=== PATIENT | female | born 1980 | race African-American/Black ===

== ENCOUNTER 2023-03-28 21:29 | Emergency (ER) | payer MEDICAID, SELFPAY ==
--- NOTE | ~2023-03-28 | XR_ITS ---
EXAMINATION: XR KNEE, RIGHT CLINICAL INFORMATION: Pain for 5 days. [place] pop COMPARISON: None available. TECHNIQUE: Two views of the right knee. FINDINGS: No displaced fracture. No dislocation. Small marginal bone spurs of the Pellet the patellofemoral joint. Small globular amorphous calcification anterior to the knee joint. Fullness in the suprapatellar area of possible joint effusion. XR/XR knee RT 2V IMPRESSION: 1. No acute osseous abnormality. 2. Possible joint effusion. 3. Mild degenerative change of the patellofemoral joint.
[2023-03-28 21:41] VITALS: BP 131/84; BP 138/90; PULSE 70; PULSE 97; RESP 16; TEMP 36.4; O2SAT 97; O2SAT 99; BMI 39.1
--- NOTE | 2023-03-28 22:31 | ED.EXTPRO ---
HPI - Extremity Problem General Chief complaint: Extremity Problem Stated complaint: knee pain and swelling, per ems Time Seen by Provider: 03/28/23 22:16 Source: patient Mode of arrival: wheelchair Limitations: no limitations History of Present Illness HPI Narrative: Patient comes emergency room complaining of right-sided knee pain. Patient states that approximately 5 days ago, patient got of her couch and heard a pop in her right knee. Patient states that as she continued to walk, the popping continued. Patient applied ice, took ibuprofen. Initially she started improving but for the last 2 days, patient states that her knee is much more swollen, unable to bend the knee due to the swelling/pressure and pain. Patient denies erythema or significant warmth on the knee. Patient denies any recent injury. Patient states that couple of years ago, patient fell down the stairs and injured her right knee. Patient did not require any treatment for it. Related Data Allergies Allergy/AdvReac Type Severity Reaction Status Date / Time acetaminophen [From TYLENOL] Allergy Intermediate GUMS TINGLE Unverified 05/27/20 19:25 Review of Systems Review of Systems: Constitutional : No Weight loss, No Fever, No Chills, No Night Sweats, No Fatigue, No Malaise ENT/Mouth : No Hearing loss, No Ear Pain, No Nasal Congestion, No Sinus Pain, No Hoarseness, No sore throat, No Rhinorrhea, No Swallowing Difficulty Eyes: No Eye Pain, No Swelling, No Redness, No Foreign Body, No Discharge, No Vision Changes Cardiovascular : No Chest Pain, No SOB, No Dyspnea on Exertion, No Orthopnea, No Edema, No Palpitations Respiratory : No Cough, No Sputum, No Wheezing, No Smoke Exposure, No Dyspnea Gastrointestinal : No Nausea, No Vomiting, No Diarrhea, No Constipation, No abdominal Pain, No Hematochezia, No Melena Genitourinary : no irregular bleeding, No Dysuria, No Urinary Frequency, No Hematuria, No Urinary Incontinence, No Urgency, No Flank Pain, No Urinary Flow Changes, No Hesitancy Musculoskeletal : Dying of right knee pain and swelling and popping noises, No Myalgias, No Joint Swelling Skin : No Skin Lesions, No rash Neuro : No Weakness, No Numbness, No Paresthesias, No Loss of Consciousness, No Dizziness, No Headache Psych : No Anxiety/Panic, No Depression, No SI/HI/AH/VH, No Social Issues, Heme/Lymph: No Bruising, No Bleeding,No Lymphadenopathy Endocrine : No Polyuria, No Polydipsia, No Temperature Intolerance [facility] Social History Social History Advance Directives: No Advance Directives Information Provided: Yes Physical Exam Vital Signs: Vital Signs: Last Vital Signs Temp 97.6 F 03/28/23 21:41 Pulse 70 03/28/23 21:41 Resp 16 03/28/23 21:41 BP 131/84 03/28/23 21:41 Pulse Ox 97 03/28/23 21:41 O2 Del Method Room Air 03/28/23 21:41 BMI result Body Mass Index 39.1 Const: Other: Appearance: Alert. Oriented X3. No acute distress. Eyes: Pupils equal, round and reactive to light. ENT: Pharynx normal. Neck: Normal inspection. Neck supple. No lymph nodes noted. No crepitus CVS: Normal heart rate and rhythm. Pulses normal. Normal S1 and S2 Respiratory: No respiratory distress. Breath sounds normal. No Wheezing. No rales Abdomen: Soft and nontender. No rigidity. No distention. Skin: Skin warm and dry. Normal skin color. Normal skin turgor. Extremities: No lower extremity edema. No Lacerations. No Rash it when he looks mildly swollen, no erythema, no ecchymosis, no obvious effusion. Patient unable to flex the knee and put her foot flat on the bed, patient has a positive test for Carl's on the right knee. Neuro: Oriented X 3. No motor deficit. No sensory deficit. Moving all extremities. No slurred speech. CN 2 through 12 grossly intact Psych: calm, cooperative, normal affect Medical Decision Making Medical Decision Making MDM Narrative: -I discussed the physical exam with the patient, patient likely have a medial or lateral meniscus injury -patient was provided a knee brace, crutches, instructed to follow-up with orthopedics -patient given 1 IM dose of ketorolac -my interpretation of x-rays of the knee: Normal alignment Differential Diagnosis Differential Diagnoses: The differential diagnosis associated with the presentation includes (Meniscal injury, ligament injury, patellar fracture, subluxation/dislocation) Discharge Plan Discharge Clinical Impression: Injury of meniscus of right knee Patient Disposition: Home, Self-Care Instructions: Knee Pain (ED) Additional Instructions: Please follow-up with your primary care physician tomorrow. If you have any worsening or new symptoms, please return to the emergency room or call 911 Referrals: Alirio Mckeon PA-C [Physician [employer]] - 2 days
[2023-03-28] MEDS: Ketorolac Tromethamine 60 MG/2 ML VIAL IM (22:48)
--- NOTE | 2023-03-28 22:54 | PC.NURSE ---
knee immobilizer applied to right knee, crutches and training provided, medicated per NOV for 8/10 right knee pain.
== END 2023-03-28 22:56 | disposition home or self-care (01) ==
PROVIDERS: Emergency Provider Emergency Medicine
DX: S83.8X1A Sprain of other specified parts of right knee, initial encounter (principal); W10.8XXA Fall (on) (from) other stairs and steps, initial encounter; Y93.9 Activity, unspecified; Y92.9 Unspecified place or not applicable; Y99.9 Unspecified external cause status
CPT/HCPCS: 73560; 96372; 99283; 99284; J1885

== ENCOUNTER → 2024-03-11 11:28 | Outpatient (BNV) | payer MEDICAID, SELFPAY | PROVIDERS: Visit Provider Internal Medicine | DX: R94.31 Abnormal electrocardiogram [ECG] [EKG] (principal) | CPT/HCPCS: 93010 ==

== ENCOUNTER 2024-03-11 11:29 | Emergency (ER) | payer MEDICAID, SELFPAY ==
--- NOTE | 2024-03-11 | ECG_ITS ---
Test Reason : irreg heartbeat Blood Pressure : / mmHG Vent. Rate : 074 BPM Atrial Rate : 074 BPM P-R Int : 170 ms QRS Dur : 100 ms QT Int : 380 ms P-R-T Axes : 063 -55 048 degrees QTc Int : 421 ms Normal sinus rhythm Left anterior fascicular block Abnormal ECG When compared with ECG of 02-AUG-2018 14:31, No significant change was found Referred By: Generic ED Physician Electronically Signed By:ROSEMARIE CASTELLON
--- NOTE | ~2024-03-11 | XR_ITS ---
EXAMINATION: XR SOFT TISSUE NECK CLINICAL INDICATION: Swelling COMPARISON: None available. TECHNIQUE: 2 views of the soft tissue neck were obtained. FINDINGS: Prevertebral soft tissues are normal. The epiglottis and aryepiglottic folds appear normal. There is no distention of the hypopharynx. No radiopaque foreign body seen. There does appear to be soft tissue prominence however in the expected region of the submandibular glands. This can be best evaluated with contrast-enhanced CT or ultrasound. XR/XR soft tissue neck IMPRESSION: Query prominent submandibular swelling. The prevertebral soft tissues however and epiglottis appear normal.
[2024-03-11 11:38] VITALS: BP 151/71; PULSE 74; RESP 19; TEMP 36.4; O2SAT 99; BMI 39.9
--- NOTE | 2024-03-11 11:38 | ED_ITS ---
HPI - General Adult General Chief complaint: General Medical Stated complaint: Irregular heart beat/Neck issues? Time Seen by Provider: 03/11/24 13:18 Related Data Allergies Allergy/AdvReac Type Severity Reaction Status Date / Time No Known Allergies Allergy Verified 03/11/24 11:45 [facility] Social History Social History Smoked in Last 30 Days: No Use of substances other than those prescribed or required for medical reasons: No Advance Directives: No Advance Directives Information Provided: Yes Do you have a plan to hurt others: No Plan Physical Exam ED Vital Signs: BMI result Body Mass Index 39.9 Course Course Course Narrative: This is a rapid medical exam performed by Ricci Montesinos NP: Additional HPI, ROS, PE not included below will be deferred to primary provider. Patient is a 43-year-old female presenting to the ED with complaint of left sided neck swelling for 2 months, reports family hx of thyroid CA. Noticed increased swelling after returning from [place] after February. Also reports hair loss to back of head, anxiety, palpitations/chest tightness. No current PCP. Plan: EKG, labs Medical Decision Making Lab Data 03/11/24 11:53 03/11/24 11:53 Labs: Lab Results 03/11/24 Range/Units 11:53 WBC 9.9 (4.8-10.8) X10*3/uL RBC 5.35 (4.20-5.50) X10*6/uL Hgb 14.6 (12.0-16.0) g/dl Hct 43.5 (37.0-47.0) % MCV 81.3 (80.0-98.0) fL MCH 27.3 (27.0-33.0) pg MCHC 33.6 (31.0-35.0) g/dl RDW 13.1 (11.0-16.0) % Plt Count 243 (160-400) X10*3/uL MPV 8.8 L (9.4-12.3) fL Immature Gran % (Auto) 0.3 (0.0-0.4) % Neut % (Auto) 48.9 (45-73) % Lymph % (Auto) 44.2 H (20-40) % [place] % (Auto) 5.7 (2-11) % Eos % (Auto) 0.6 (0-4) % Baso % (Auto) 0.3 (0-2) % Lymph # (Auto) 4.4 (1.2-4.9) X10*3/uL [place] # (Auto) 0.6 (0.1-1.2) X10*3/uL Eos # (Auto) 0.1 (0.0-0.4) X10*3/uL Baso # (Auto) 0.0 (0.0-0.2) X10*3/uL Abs Immat Gran (auto) 0.03 (0.00-0.03) X10*3/uL Absolute Neuts (auto) 4.9 (2.0-8.3) x10*3/uL Absolute Nucleated RBC 0.000 (0.0-0.012) X10*3/uL Nucleated RBC % (auto) 0.0 (0.0-0.2) /100WBC PT 10.7 L (11.1-13.3) SEC INR 0.9 (0.9-1.1) Sodium 139 (135-145) mmol/L Potassium 4.0 (3.3-5.1) mmol/L Chloride 105 (96-108) mmol/L Carbon Dioxide 28 (22-29) mmol/L Anion Gap 10 L (12-20) BUN 6 L (9-16) mg/dL Creatinine 0.81 (0.5-1.4) mg/dL Estim Creat Clear Calc 112.1 Estimated GFR > 60 Random Glucose 103 (60-115) mg/dL Calcium 9.5 (8.4-10.2) mg/dL Magnesium 2.1 (1.6-2.6) mg/dL Total Bilirubin 1.1 H (0.0-1.0) mg/dL AST 75 H (5-31) U/L ALT 86 H (0-31) U/L Alkaline Phosphatase 50 (39-117) U/L Troponin I High Sens < 2.7 (<3.5-17.0) ng/L Total Protein 7.3 (6.5-8.0) g/dL Albumin 4.5 (3.5-5.0) g/dL TSH 1.57 (0.32-4.0) uIU/mL Beta HCG, Quant < 2 mIU/mL Discharge Plan Discharge Clinical Impression: Chest pain Patient Disposition: Home, Self-Care Instructions: Noncardiac Chest Pain (ED) Additional Instructions: You were seen and evaluated in the emergency room. Your vital signs were normal and he did not have fever. ? Your blood work was reassuring. Your x-ray of the neck was normal. Please follow-up with your primary care doctor in the next 5-7 days. Please return to the emergency room if you develop any worsening symptoms including, but not limited to fever, chest pain or difficulty breathing. ? Interventions: ED Discharge Assessment Last Done: 03/11/24 15:56 Discharge Date/Time: 03/11/24 15:57 Print Language: Israeli
[2024-03-11 11:59] LABS: MANUAL DIFF FLAG NO
[2024-03-11 12:00] LABS: Basophils Percent Auto 0.3 % (0-2); Eosinophils Absolute Auto 0.1 X10*3/uL (0.0-0.4); Eosinophils Percent Auto 0.6 % (0-4); Hematocrit 43.5 % (37.0-47.0); Hemoglobin 14.6 g/dl (12.0-16.0); Imm Gran Abs Auto 0.03 X10*3/uL (0.00-0.03); Imm Gran Pct Auto 0.3 % (0.0-0.4); Lymphocytes Absolute Auto 4.4 X10*3/uL (1.2-4.9); Lymphocytes Percent Auto 44.2 % (20-40); Mean Corpuscular HGB Conc 33.6 g/dl (31.0-35.0); Mean Corpuscular Hemoglobin 27.3 pg (27.0-33.0); Mean Corpuscular Volume 81.3 fL (80.0-98.0); Mean Platelet Volume 8.8 fL (9.4-12.3); Monocytes Absolute Auto 0.6 X10*3/uL (0.1-1.2); Monocytes Percent Auto 5.7 % (2-11); Neutrophils Absolute Auto 4.9 x10*3/uL (2.0-8.3); Neutrophils Percent Auto 48.9 % (45-73); Platelet Count 243 X10*3/uL (160-400); Red Blood Count 5.35 X10*6/uL (4.20-5.50); Red Cell Distribution Width 13.1 % (11.0-16.0); White Blood Count 9.9 X10*3/uL (4.8-10.8)
[2024-03-11 12:08] LABS: INTERNATIONAL NORM RATIO 0.9 (0.9-1.1); Prothrombin Time 10.7 SEC (11.1-13.3)
[2024-03-11 12:24] LABS: Alanine Aminotransferase 86 U/L (0-31); Albumin Level 4.5 g/dL (3.5-5.0); Alkaline Phosphatase 50 U/L (39-117); Anion Gap 10 (12-20); Aspartate Amino Transferase 75 U/L (5-31); Bilirubin Total 1.1 mg/dL (0.0-1.0); Blood Urea Nitrogen 6 mg/dL (9-16); Calcium 9.5 mg/dL (8.4-10.2); Carbon Dioxide 28 mmol/L (22-29); Chloride 105 mmol/L (96-108); Creatinine Clr Calc Pharmacy 112.1; Estimated Glomerular Filt Rate > 60; Glucose Random 103 mg/dL (60-115); Magnesium 2.1 mg/dL (1.6-2.6); Sodium 139 mmol/L (135-145); Total Protein 7.3 g/dL (6.5-8.0)
[2024-03-11 12:39] LABS: TSH reflex Free T4 1.57 uIU/mL (0.32-4.0)
[2024-03-11 12:48] LABS: HCG Quantitative < 2 mIU/mL; Troponin-I High Sensitivity < 2.7 ng/L (<3.5-17.0)
--- NOTE | 2024-03-11 13:21 | ED.GENADULT ---
HPI - General Adult General Chief complaint: General Medical Stated complaint: Irregular heart beat/Neck issues? Time Seen by Provider: 03/11/24 13:18 Source: patient Mode of arrival: ambulatory Limitations: no limitations History of Present Illness HPI narrative: This is a 43-year-old woman with a past medical history of anxiety/depression who presents for evaluation. The patient states that the family members having noticed some increased swelling underneath her chin. She reports that she initially thought that this was secondary to weight gain, but states that she is fairly active. She states that she at times notices the swelling though at other times does not notice it, but states that family members were concerned due to having previously had family members with thyroid cancer. She states that everyone has different perspectives . She states she has noticed some hair loss when showering. She states feeling tired, but states she is very busy with her young children and states her child has autism. She states she was very worried about her family members concerns last night and states she did not sleep well. She states she was up until 4-5am this morning. She states she had chest tightness last night and states she had to step outside for a short walk, which she states helped. She states no exertional chest pain or dyspnea. She states no back pain or abdominal pain. She states no nausea or vomiting. She states no sore throat, cough, congestion, fevers or chills. She states no abdominal pain. She states no urinary symptoms or changes to bowel habits. Related Data Allergies Allergy/AdvReac Type Severity Reaction Status Date / Time No Known Allergies Allergy Verified 03/11/24 11:45 Review of Systems Review of Systems: ROS as per HPI [facility] Social History Social History Smoked in Last 30 Days: No Use of substances other than those prescribed or required for medical reasons: No Advance Directives: No Advance Directives Information Provided: Yes Do you have a plan to hurt others: No Plan Physical Exam ED Vital Signs: Vital Signs - 24 hr 03/11/24 11:38 03/11/24 13:39 03/11/24 14:20 Temperature 97.5 F 97.7 F 98 F Pulse Rate 74 72 62 Respiratory Rate 19 13 16 Blood Pressure 151/71 H 132/94 H 128/62 Pulse Oximetry 99 100 100 Oxygen Delivery Method Room Air Room Air Room Air BMI result Body Mass Index 39.9 Gen: NAD, AOx3 HEENT: NCAT, EOMI, normal conjunctiva, uvula midline without edema, no posterior oropharynx erythema or exudates, no sublingual edema Neck: supple, no anterior neck edema or overlying skin changes, no appreciable thyromegaly CV: RRR Pulm: CTAB, no increased work of breathing GI: Soft, NTND, no rebound, guarding or rigidity MSK: No midline vertebral tenderness to palpation, full range of motion with neck flexion/extension lateral 45 degree rotation Neuro: Grossly non focal Medical Decision Making Medical Decision Making [facility] Narrative: Differential diagnosis includes, but is not limited to anxiety, acute coronary syndrome, electrolyte abnormality, hypothyroidism. Patient is afebrile and hemodynamically stable on room air. Exam is benign and reassuring. I reviewed and interpreted labs, which are noncontributory. I reviewed and interpreted EKG, which is unremarkable for any acute findings. Reviewed RME. X-ray of the neck is unremarkable for any acute findings. On re-examination, patient is well-appearing and in no acute distress. Patient is tolerating po intake. There is no indication for further emergent evaluation in this otherwise well-appearing patient as above. ?Patient is provided written and verbal instructions, educational materials, recommendations for outpatient follow-up, strict return precautions and teach back is performed. ?Patient states understanding and agreement with plan of care. ?Patient is discharged home in stable and improved condition. Admission/Observation Consideration of admission/observation: Escalation of care including admission/observation considered Lab Data [facility] Lab Attestation statement: I reviewed the patient's lab results. 03/11/24 11:53 03/11/24 11:53 Labs: Lab Results 03/11/24 Range/Units 11:53 WBC 9.9 (4.8-10.8) X10*3/uL RBC 5.35 (4.20-5.50) X10*6/uL Hgb 14.6 (12.0-16.0) g/dl Hct 43.5 (37.0-47.0) % MCV 81.3 (80.0-98.0) fL MCH 27.3 (27.0-33.0) pg MCHC 33.6 (31.0-35.0) g/dl RDW 13.1 (11.0-16.0) % Plt Count 243 (160-400) X10*3/uL MPV 8.8 L (9.4-12.3) fL Immature Gran % (Auto) 0.3 (0.0-0.4) % Neut % (Auto) 48.9 (45-73) % Lymph % (Auto) 44.2 H (20-40) % [place] % (Auto) 5.7 (2-11) % Eos % (Auto) 0.6 (0-4) % Baso % (Auto) 0.3 (0-2) % Lymph # (Auto) 4.4 (1.2-4.9) X10*3/uL [place] # (Auto) 0.6 (0.1-1.2) X10*3/uL Eos # (Auto) 0.1 (0.0-0.4) X10*3/uL Baso # (Auto) 0.0 (0.0-0.2) X10*3/uL Abs Immat Gran (auto) 0.03 (0.00-0.03) X10*3/uL Absolute Neuts (auto) 4.9 (2.0-8.3) x10*3/uL Absolute Nucleated RBC 0.000 (0.0-0.012) X10*3/uL Nucleated RBC % (auto) 0.0 (0.0-0.2) /100WBC PT 10.7 L (11.1-13.3) SEC INR 0.9 (0.9-1.1) Sodium 139 (135-145) mmol/L Potassium 4.0 (3.3-5.1) mmol/L Chloride 105 (96-108) mmol/L Carbon Dioxide 28 (22-29) mmol/L Anion Gap 10 L (12-20) BUN 6 L (9-16) mg/dL Creatinine 0.81 (0.5-1.4) mg/dL Estim Creat Clear Calc 112.1 Estimated GFR > 60 Random Glucose 103 (60-115) mg/dL Calcium 9.5 (8.4-10.2) mg/dL Magnesium 2.1 (1.6-2.6) mg/dL Total Bilirubin 1.1 H (0.0-1.0) mg/dL AST 75 H (5-31) U/L ALT 86 H (0-31) U/L Alkaline Phosphatase 50 (39-117) U/L Troponin I High Sens < 2.7 (<3.5-17.0) ng/L Total Protein 7.3 (6.5-8.0) g/dL Albumin 4.5 (3.5-5.0) g/dL TSH 1.57 (0.32-4.0) uIU/mL Beta HCG, Quant < 2 mIU/mL Independent Interpretation I performed an independent interpretation of an: EKG Interpretation: EKG shows normal sinus rhythm at 74 beats per minute, HI 170, QRS 100, QTC 421, no STEMI, (compared to prior EKG August 02, 2018 there are no diagnostic ischemic changes) Radiology Impression Discussion of test interpretation with radiology: I have reviewed the radiologist's reading. Discharge Plan Discharge Clinical Impression: Chest pain Patient Disposition: Home, Self-Care Instructions: Noncardiac Chest Pain (ED) Additional Instructions: You were seen and evaluated in the emergency room. Your vital signs were normal and he did not have fever. ? Your blood work was reassuring. Your x-ray of the neck was normal. Please follow-up with your primary care doctor in the next 5-7 days. Please return to the emergency room if you develop any worsening symptoms including, but not limited to fever, chest pain or difficulty breathing. ? Print Language: [place]
[2024-03-11 13:39] VITALS: BP 132/94; PULSE 72; RESP 13; TEMP 36.5; O2SAT 100
[2024-03-11 14:20] VITALS: BP 128/62; PULSE 62; RESP 16; TEMP 36.6; O2SAT 100
[2024-03-11 15:56] VITALS: BP 128/60; PULSE 60; RESP 18; TEMP 36.9; O2SAT 100
== END 2024-03-11 15:57 | disposition home or self-care (01) ==
PROVIDERS: Registered Nurse Emergency; Emergency Provider Emergency Medicine
DX: R07.9 Chest pain, unspecified (principal); R22.1 Localized swelling, mass and lump, neck
CPT/HCPCS: 36415; 70360; 80053; 83735; 84443; 84484; 84702; 85025; 85610; 93005; 99283; 99284

== ENCOUNTER 2024-05-19 12:03 | Outpatient (REF) | payer MEDICAID, SELFPAY ==
--- NOTE | ~2024-05-19 | XR_ITS ---
EXAMINATION: XR THORACIC SPINE Lumbosacral spine series CLINICAL INFORMATION: Low back pain and right-sided sciatica COMPARISON: None available. TECHNIQUE: 2 views of the dorsal spine 5 views of the lumbosacral spine including obliques FINDINGS: Dorsal spine Vertebral bodies normally aligned with normal height. Disc spaces normal. However there is endplate osteophytes noted at multiple disc levels in the lower dorsal spine indicative of mild spondylosis. Surrounding bones soft tissues unremarkable. Lumbosacral spine: Vertebral bodies normally aligned with normal height. Mild degenerative disc changes at L4-L4-L5 manifested by minimal endplate osteophytes. Facets unremarkable. Surrounding bones and soft tissues unremarkable. XR/XR thoracic spine 2V IMPRESSION: 1. Lumbosacral spine: Mild spondylosis 2. Dorsal spine: Mild spondylosis. Electronically signed by: Jonas Stanley MD 06/04/2024 07:05 AM EDT
--- NOTE | ~2024-05-19 | XR_ITS ---
EXAMINATION: XR THORACIC SPINE Lumbosacral spine series CLINICAL INFORMATION: Low back pain and right-sided sciatica COMPARISON: None available. TECHNIQUE: 2 views of the dorsal spine 5 views of the lumbosacral spine including obliques FINDINGS: Dorsal spine Vertebral bodies normally aligned with normal height. Disc spaces normal. However there is endplate osteophytes noted at multiple disc levels in the lower dorsal spine indicative of mild spondylosis. Surrounding bones soft tissues unremarkable. Lumbosacral spine: Vertebral bodies normally aligned with normal height. Mild degenerative disc changes at L4-L4-L5 manifested by minimal endplate osteophytes. Facets unremarkable. Surrounding bones and soft tissues unremarkable. XR/XR lumbar spine 4V min IMPRESSION: 1. Lumbosacral spine: Mild spondylosis 2. Dorsal spine: Mild spondylosis. Electronically signed by: Jonas Stanley MD 06/04/2024 07:05 AM EDT
== END 2024-05-19 12:04 | disposition home or self-care (01) ==
LOC: HO.HHCX 12:03
PROVIDERS: Visit Provider Internal Medicine
DX: M54.41 Lumbago with sciatica, right side (principal); R53.1 Weakness
CPT/HCPCS: 72070; 72110

== ENCOUNTER 2024-05-20 12:13 | Outpatient (REF) | payer MEDICAID, SELFPAY ==
[2024-05-20 13:11] LABS: MANUAL DIFF FLAG NO
[2024-05-20 13:28] LABS: Basophils Percent Auto 0.2 % (0-2); Eosinophils Absolute Auto 0.1 X10*3/uL (0.0-0.4); Eosinophils Percent Auto 0.7 % (0-4); Hemoglobin 13.4 g/dl (12.0-16.0); Imm Gran Abs Auto 0.05 X10*3/uL (0.00-0.03); Imm Gran Pct Auto 0.6 % (0.0-0.4); Lymphocytes Absolute Auto 3.5 X10*3/uL (1.2-4.9); Lymphocytes Percent Auto 40.8 % (20-40); Mean Corpuscular HGB Conc 32.7 g/dl (31.0-35.0); Mean Corpuscular Hemoglobin 27.3 pg (27.0-33.0); Mean Corpuscular Volume 83.5 fL (80.0-98.0); Mean Platelet Volume 9.3 fL (9.4-12.3); Monocytes Absolute Auto 0.6 X10*3/uL (0.1-1.2); Monocytes Percent Auto 6.7 % (2-11); Neutrophils Absolute Auto 4.4 x10*3/uL (2.0-8.3); Platelet Count 235 X10*3/uL (160-400); Red Blood Count 4.91 X10*6/uL (4.20-5.50); Red Cell Distribution Width 13.5 % (11.0-16.0); White Blood Count 8.7 X10*3/uL (4.8-10.8)
[2024-05-20 14:00] LABS: Alanine Aminotransferase 34 U/L (0-31); Albumin Level 4.1 g/dL (3.5-5.0); Alkaline Phosphatase 46 U/L (39-117); Anion Gap 11 (12-20); Aspartate Amino Transferase 26 U/L (5-31); Bilirubin Total 0.6 mg/dL (0.0-1.0); Blood Urea Nitrogen 6 mg/dL (9-16); Calcium 9.3 mg/dL (8.4-10.2); Carbon Dioxide 26 mmol/L (22-29); Chloride 105 mmol/L (96-108); Cholesterol 186 mg/dL (<200); Estimated Glomerular Filt Rate > 60; Glucose Random 97 mg/dL (60-115); HDL Cholesterol 60 mg/dL (>40); LDL Cholesterol Calculated 102 mg/dL (<100); Potassium 4.5 mmol/L (3.3-5.1); Sodium 137 mmol/L (135-145); Total Protein 6.9 g/dL (6.5-8.0); Triglycerides 121 mg/dL (<150)
[2024-05-20 14:02] LABS: Vitamin D 25-OH Total 16.3 ng/mL (>30)
[2024-05-20 14:17] LABS: Erythrocyte Sedimentation Rate 2 MM/HR (0-20)
[2024-05-20 17:24] LABS: Reflex LDLD? No
[2024-05-22 14:04] LABS: Anti Nuclear Antibody Screen NEGATIVE (NEGATIVE)
[2024-05-23 09:12] LABS: TS Negative Control Passed; TS Panel A 0; TS Panel B 0; TS Positive Control Passed; TSpotTB Negative (Negative)
== END 2024-05-20 12:14 | disposition home or self-care (01) ==
LOC: HO.HHCL 12:13
PROVIDERS: Visit Provider Internal Medicine
DX: R53.1 Weakness (principal); M54.41 Lumbago with sciatica, right side; G44.89 Other headache syndrome; F41.8 Other specified anxiety disorders; J45.40 Moderate persistent asthma, uncomplicated; H93.11 Tinnitus, right ear
CPT/HCPCS: 36415; 80053; 80061; 82306; 85025; 85652; 86038; 86481

== ENCOUNTER 2024-06-03 09:22 | Outpatient (REF) | payer MEDICAID, SELFPAY ==
--- NOTE | 2024-06-03 09:26 | EMG_ITS ---
FINDINGS: Right median and ulnar motor and sensory studies were performed. Right radial sensory and median and lateral antecubital brachial sensory studies were performed and paraspinal muscles were tested with a needle. IMPRESSION: Mild to moderate right median neuropathy across carpal tunnel. MD HALLEY Benson/ROBERTO CARLOS / [id number]
== END 2024-06-03 09:23 | disposition home or self-care (01) ==
LOC: HO.NEURO 09:22
PROVIDERS: PCP Internal Medicine; Visit Provider Internal Medicine
DX: R20.0 Anesthesia of skin (principal)
CPT/HCPCS: 95886; 95910

== ENCOUNTER 2024-07-17 14:11 | Emergency (ER) | payer MEDICAID, SELFPAY ==
--- NOTE | 2024-07-17 | ECG_ITS ---
Test Reason : cp Blood Pressure : / mmHG Vent. Rate : 075 BPM Atrial Rate : 075 BPM P-R Int : 190 ms QRS Dur : 102 ms QT Int : 390 ms P-R-T Axes : 065 -54 035 degrees QTc Int : 435 ms Normal sinus rhythm Left anterior fascicular block Cannot rule out Anterior infarct , age undetermined Abnormal ECG When compared with ECG of 11-MAR-2024 11:28, No significant change was found Referred By: Generic ED Physician Electronically Signed By:MELI KIDD MD
--- NOTE | ~2024-07-17 | XR_ITS ---
EXAMINATION: XR CHEST CLINICAL INFORMATION: Dyspnea. COMPARISON: Chest radiograph 08/02/2018. TECHNIQUE: Frontal view of the chest was obtained. FINDINGS: Low lung volumes with mild bronchovascular crowding. No focal consolidation, pleural effusion or pneumothorax. Normal appearance of the cardiomediastinal silhouette. No acute osseous findings. XR/XR chest 1V IMPRESSION: Low lung volumes with bronchovascular crowding. No focal consolidation, pleural effusion or pneumothorax. Electronically signed by: Elsa Fontenot MD 07/17/2024 05:36 PM EST
[2024-07-17 14:26] VITALS: BP 143/90; BP 151/92; PULSE 73; PULSE 75; RESP 18; TEMP 36.6; O2SAT 98; O2SAT 99; BMI 37.3
[2024-07-17 14:39] LABS: MANUAL DIFF FLAG NO
[2024-07-17 14:46] LABS: Basophils Percent Auto 0.2 % (0-2); Eosinophils Absolute Auto 0.1 X10*3/uL (0.0-0.4); Eosinophils Percent Auto 1.6 % (0-4); Hematocrit 40.6 % (37.0-47.0); Hemoglobin 13.8 g/dl (12.0-16.0); Imm Gran Abs Auto 0.04 X10*3/uL (0.00-0.03); Imm Gran Pct Auto 0.5 % (0.0-0.4); Lymphocytes Absolute Auto 3.6 X10*3/uL (1.2-4.9); Lymphocytes Percent Auto 40.2 % (20-40); Mean Corpuscular Hemoglobin 27.5 pg (27.0-33.0); Mean Platelet Volume 8.9 fL (9.4-12.3); Monocytes Absolute Auto 0.5 X10*3/uL (0.1-1.2); Monocytes Percent Auto 5.2 % (2-11); Neutrophils Absolute Auto 4.6 x10*3/uL (2.0-8.3); Neutrophils Percent Auto 52.3 % (45-73); Platelet Count 249 X10*3/uL (160-400); Red Blood Count 5.01 X10*6/uL (4.20-5.50); Red Cell Distribution Width 12.9 % (11.0-16.0); White Blood Count 8.8 X10*3/uL (4.8-10.8)
--- NOTE | 2024-07-17 14:56 | ED_ITS ---
HPI - Chest Pain General Chief Complaint: Chest Pain Stated Complaint: PALPATATIONS AND DIZZY PER EMS Time Seen by Provider: 07/17/24 14:48 Source: patient and EMS Mode of arrival: EMS Limitations: no limitations History of Present Illness ED Provider: LUISITO MARY narrative: 43 yo female with PMH of asthma and R carpal tunnel syndrome who notes she was walking to the kitchen at 1245pm when she felt sudden difficulty breathing, chest tightness and felt like she was going to pass out. She denies headache. She notes she has not traveled, is not on OCPs, no procedures. She reports no recent URI, GIB, n/v/d. She states she was able to walk herself to the urgent care - staff told her that the EKG was abnormal. SHe notes she has been dealing with dyspnea for some time now and just had normal PFTs with her PCP. MD complaint: chest pain (dyspnea, near syncope) Onset (ago): hour(s) (1245pm today) Timing of current episode: now resolved Prior episodes: No Onset: during rest Pain location: left chest Pain radiation: none Severity: moderate Quality: tightness Relieving factors: nothing Exacerbating factors: movement Associated symptoms: dyspnea, sense of impending doom and syncope (near syncope) Treatment prior to arrival: none Related Data Allergies Allergy/AdvReac Type Severity Reaction Status Date / Time No Known Allergies Allergy Verified 07/17/24 14:26 Review of Systems 2 Review of Systems: Constitutional : No Weight loss, No Fever, No Chills ENT/Mouth : No sore throat, No Rhinorrhea Eyes: No Eye Pain, No Swelling Cardiovascular : pos Chest Pain, pos SOB, no Dyspnea on Exertion, No Orthopnea, No Edema, pos Palpitations Respiratory : No Cough, No Sputum Gastrointestinal : no Nausea, No Vomiting, No Diarrhea, No abdominal Pain, No Hematochezia, No Melena Genitourinary : No Dysuria, No Urinary Frequency Musculoskeletal : No joint pain, No Myalgias, No Joint Swelling Skin : No Skin Lesions, No rash Neuro : No Weakness, No Numbness, pos Dizziness, No Headache Psych : No Anxiety/Panic, No Depression Heme/Lymph: No Bruising, No Lymphadenopathy Endocrine : No Polyuria, No Polydipsia All other systems reviewed and are negative PMFSH Past Medical History Attestation statement: The following information was validated with the patient. Source: old records reviewed Medical History Carpal tunnel syndrome Asthma Social History Social History (Updated 07/17/24 @ 15:48 by Shiloh Moody DO) Patient Tobacco Use Status: Never used Tobacco Advance Directives: No Advance Directives Information Provided: Yes Do you have a plan to hurt others: No Plan Physical Exam 2 Vital Signs: Vital Signs: Last Vital Signs Temp 97.9 F 07/17/24 14:26 Pulse 83 07/17/24 15:48 Resp 18 07/17/24 14:26 BP 130/84 07/17/24 15:48 Pulse Ox 99 07/17/24 14:26 O2 Del Method Room Air 07/17/24 14:26 BMI result Body Mass Index 37.3 Appearance: Alert. Oriented X3. No acute distress. Eyes: Pupils equal, round and reactive to light. ENT: Pharynx normal. Neck: Normal inspection. Neck supple. CVS: Normal heart rate and rhythm. Pulses normal. Respiratory: No respiratory distress. Breath sounds normal. Abdomen: Soft and nontender. Skin: Skin warm and dry. Normal skin color. Normal skin turgor. Extremities: No lower extremity edema. No calf ttp Neuro: Oriented X 3. No motor deficit. No sensory deficit. Course Course Course Narrative: signed out to Dr. Hoang pending repeat troponin, xray results and ortho VS Medical Decision Making Medical Decision Making [facility] Narrative: 43 yo female with PMH of asthma and R carpal tunnel syndrome here with c/o near syncope episode and feeling dyspnea and chest pain at this time she has no risk factors for ACS, she is low prob VTE, her EKG is unchanged - I am going to order troponin x 2, ddimer, ortho VS, CXR. Differential Diagnosis Differential Diagnoses: The differential diagnosis associated with the presentation includes near syncope, dehydration, anemia, atypical for ACS, low prob VTE orthostatic Admission/Observation Consideration of admission/observation: Escalation of care including admission/observation considered Lab Data [facility] Lab Attestation statement: I reviewed the patient's lab results. 07/17/24 14:29 07/17/24 14:29 Labs: Lab Results 07/17/24 Range/Units 14:29 WBC 8.8 (4.8-10.8) X10*3/uL RBC 5.01 (4.20-5.50) X10*6/uL Hgb 13.8 (12.0-16.0) g/dl Hct 40.6 (37.0-47.0) % MCV 81.0 (80.0-98.0) fL MCH 27.5 (27.0-33.0) pg MCHC 34.0 (31.0-35.0) g/dl RDW 12.9 (11.0-16.0) % Plt Count 249 (160-400) X10*3/uL MPV 8.9 L (9.4-12.3) fL Immature Gran % (Auto) 0.5 H (0.0-0.4) % Neut % (Auto) 52.3 (45-73) % Lymph % (Auto) 40.2 H (20-40) % [place] % (Auto) 5.2 (2-11) % Eos % (Auto) 1.6 (0-4) % Baso % (Auto) 0.2 (0-2) % Lymph # (Auto) 3.6 (1.2-4.9) X10*3/uL [place] # (Auto) 0.5 (0.1-1.2) X10*3/uL Eos # (Auto) 0.1 (0.0-0.4) X10*3/uL Baso # (Auto) 0.0 (0.0-0.2) X10*3/uL Abs Immat Gran (auto) 0.04 H (0.00-0.03) X10*3/uL Absolute Neuts (auto) 4.6 (2.0-8.3) x10*3/uL Absolute Nucleated RBC 0.000 (0.0-0.012) X10*3/uL Nucleated RBC % (auto) 0.0 (0.0-0.2) /100WBC Sodium 138 (135-145) mmol/L Potassium 3.7 (3.3-5.1) mmol/L Chloride 102 (96-108) mmol/L Carbon Dioxide 28 (22-29) mmol/L Anion Gap 12 (12-20) BUN 8 L (9-16) mg/dL Creatinine 0.66 (0.5-1.4) mg/dL Estim Creat Clear Calc 132.6 Estimated GFR > 60 Random Glucose 92 (60-115) mg/dL Calcium 9.2 (8.4-10.2) mg/dL Magnesium 2.0 (1.6-2.6) mg/dL Total Bilirubin 0.8 (0.0-1.0) mg/dL AST 28 (5-31) U/L ALT 35 H (0-31) U/L Alkaline Phosphatase 49 (39-117) U/L Troponin I High Sens < 2.7 (<3.5-17.0) ng/L Total Protein 7.6 (6.5-8.0) g/dL Albumin 4.4 (3.5-5.0) g/dL TSH 0.54 (0.32-4.0) uIU/mL Independent Interpretation I performed an independent interpretation of an: EKG and Plain X-Ray Interpretation: Rate: 75 Rhythm: NSR [place]: left Normal P waves. Normal TAYLER. Normal QRS complex. ST T wave : no MAYTE, inverted t waves V1 qTC: 435 prior studies: no acute ischemia, no change from March 2024 The study has been interpreted contemporaneously by me. . Radiology Impression Discussion of test interpretation with radiology: I have reviewed the radiologist's reading. Independent Historian Clinical information obtained from an independent historian. History obtained from or confirmed by: EMS External Record Review External record reviewed: Outpatient record Discharge Plan Discharge Clinical Impression: Atypical chest pain, Near syncope Patient Disposition: Still a Patient Instructions: Chest Pain (ED), Near Syncope (ED) Additional Instructions: labs reassuring, return for any worsening symptoms or concerns EKG no change from priors please follow up with your primary care doctor Print Language: Zambian
[2024-07-17 15:10] LABS: Alanine Aminotransferase 35 U/L (0-31); Albumin Level 4.4 g/dL (3.5-5.0); Alkaline Phosphatase 49 U/L (39-117); Anion Gap 12 (12-20); Aspartate Amino Transferase 28 U/L (5-31); Bilirubin Total 0.8 mg/dL (0.0-1.0); Blood Urea Nitrogen 8 mg/dL (9-16); Calcium 9.2 mg/dL (8.4-10.2); Carbon Dioxide 28 mmol/L (22-29); Chloride 102 mmol/L (96-108); Creatinine Clr Calc Pharmacy 132.6; Estimated Glomerular Filt Rate > 60; Glucose Random 92 mg/dL (60-115); Potassium 3.7 mmol/L (3.3-5.1); Sodium 138 mmol/L (135-145); Total Protein 7.6 g/dL (6.5-8.0)
[2024-07-17 15:13] LABS: Troponin-I High Sensitivity < 2.7 ng/L (<3.5-17.0)
[2024-07-17 15:40] LABS: TSH reflex Free T4 0.54 uIU/mL (0.32-4.0)
[2024-07-17 15:48] VITALS: BP 129/79; BP 130/84; PULSE 75; PULSE 83; PULSE 87
[2024-07-17 16:12] LABS: D Dimer High Sensitivity < 150 NG/ML
--- NOTE | 2024-07-17 16:23 | PC.NURSE ---
labs obtained/sent to lab by tech. orthostatic vs obtained by tech - pt reports increased dizziness/lightheadedness w/ exertion/movement. no sob/wob noted. respirations even/unlabored. plan of care ongoing. call cortez placed within reach.
--- NOTE | 2024-07-17 17:00 | PC.NURSE ---
repeat troponin obtained/sent to lab.
--- NOTE | 2024-07-17 17:03 | MHC.EDTECH ---
troponin lab obtained at [id number]
[2024-07-17 17:33] LABS: Troponin-I High Sensitivity < 2.7 ng/L (<3.5-17.0)
[2024-07-17 18:23] VITALS: BP 129/82; PULSE 78; RESP 18; TEMP 36.4; O2SAT 98
[2024-07-17 18:24] VITALS: BP 129/82; PULSE 78; RESP 18; TEMP 36.4; O2SAT 98
== END 2024-07-17 18:34 | disposition still patient (30) ==
PROVIDERS: Emergency Medicine; Emergency Provider Emergency Medicine; PCP Internal Medicine
DX: R07.89 Other chest pain (principal); R00.2 Palpitations; R42 Dizziness and giddiness; R55 Syncope and collapse; Z79.899 Other long term (current) drug therapy
CPT/HCPCS: 36415; 71045; 80053; 83735; 84443; 84484; 85025; 85379; 93005; 99283; 99285

== ENCOUNTER → 2024-07-17 14:29 | Outpatient (BNV) | payer MEDICAID, SELFPAY | PROVIDERS: Emergency Provider Emergency Medicine; PCP Internal Medicine; Visit Provider Internal Medicine Cardiovascular Disease | DX: I44.4 Left anterior fascicular block (principal) | CPT/HCPCS: 93010 ==

== ENCOUNTER 2025-03-27 10:37 | Outpatient (REF) | payer MEDICAID, SELFPAY ==
--- OUTSIDE RECORDS SUMMARY | 2025-03-27 11:09 | XMS_ITS | Clinical Summary ---
Author Organization [employer] Address [address] [place] [address] [address] [place] [address] Care Team Providers Care Sports Nutritionist Name Role Phone Elissa Hargrove MD Primary Care Provider + Allergies No known active allergies Medications zolpidem (Ambien) 5 MG tablet TAKE 1 TABLET BY MOUTH AT BEDTIME NEEDED FOR SLEEP ONSET 023 Active Blood Pressure Monitoring (Blood Pressure Cuff) misc Use daily as prescribed 1 each 024 Active Mometasone Furoate (Asmanex HFA) 100 MCG/ACT aerosolIndicati ons:Moderate persistent asthma without complication INHALE 2 PUFFS BY MOUTH TWICE A DAY. RINSE MOUTH AFTER USE. 39 g 3 025 Active Ventolin HFA 108 (90 Base) MCG/ACT inhalerIndicati ons:Moderate persistent asthma without complication INHALE 2 PUFFS 4 TIMES A DAY NEEDED FOR WHEEZING 18 g 11 025 Active meloxicam (Mobic) 15 MG tablet TAKE 1 TABLET BY MOUTH ONCE DAILY 30 tablet 025 Active naproxen (Naprosyn) 500 MG tablet Take 1 tablet (500 mg) by mouth if needed in the morning and at bedtime for mild pain. 40 tablet 1 025 2025 Active baclofen (Lioresal) 10 MG tablet Take 1 tablet (10 mg) by mouth if needed in the morning, at noon, and at bedtime for muscle spasms. 60 tablet 1 025 2024 Active methylPREDNISol one (Medrol Dospak) 4 MG tablets Follow schedule on package instructions 21 tablet 025 2024 Active acetaminophen (Tylenol 8 Hour) 650 MG ER tablet Take 1 tablet (650 mg) by mouth every 8 (eight) hours if needed for mild pain. Do not crush, chew, or split. 50 tablet 1 025 2025 Active Diclofenac Sodium 1 % gel Apply 2 g topically if needed in the morning, at noon, in the evening, and at bedtime (pain). 150 g 3 Active busPIRone (Buspar) 7.5 MG tablet Take 7.5 mg by mouth 2 times daily. 023 2024 Discontinued acetaminophen (Tylenol Extra Strength) 500 MG tablet 1-2 tablets po q8h prn pain 150 tablet 024 2024 Discontinued(D ose adjustment) methocarbamol (Robaxin) 500 MG tablet Take 1 tablet (500 mg) by mouth every 8 (eight) hours if needed for muscle spasms for up to 10 days. 30 tablet 025 2024 Discontinued(I neffective) gabapentin (Neurontin) 100 MG capsule Take 1 capsule (100 mg) by mouth at bedtime. 90 capsule 2024 Discontinued(S parrish effects) meloxicam (Mobic) 15 MG tablet Take 1 tablet (15 mg) by mouth Once per day. 30 tablet 025 2024 Discontinued Active Problems Problem Noted Date Diagnosed Date Acute exacerbation of chronic low back pain 12/11 Assessment & Plan (01/07/2025 4:38 PM EDT): She has known DJD/DDD L-spine, its likely related to a sprain or herniated disc She will take Meloxicam daily x 2w + Tylenol prn pain. She'll take Robaxin bid and Gabapentin at bedtime, hold for sedation, she's aware that she can not drive or perform activities that require vigilance while taking these meds. She can come for a Toradol injection prn severe pain. She's aware that can not take any other NSAIDs Refer to PT and fu w me in 3mo Chronic left-sided thoracic back pain 01/07/2025 Assessment & Plan (01/07/2025 4:45 PM EDT): Start PT, see above Essential hypertension 07/03/2024 Assessment & Plan (07/03/2024 11:24 AM EDT): New Dx. She will start checking at home three times per week and follow up in 4 weeks with nurse and with me in 4 months. Counseled re low salt diet/increase moderate physical activity. Check home BP BIW and prn CP/PAGE/MCLEAN Non smoking patient. 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 Will prescribe wrist brace x 4-5 weeks mainly QHS. Witnessed episode of apnea 05/19/2024 Assessment & Plan (07/03/2024 11:24 AM EDT): Did not show for sleep study gave information to reschedule it. Assessment & Plan (05/19/2024 12:01 PM EDT): - r/o YAMILKA - order sleep study Other headache syndrome 05/19/2024 Assessment & Plan (05/19/2024 12:08 PM EDT): - unclear if related to migraine vs tension headache - will obtain records from previous PCP and MRI from [facility] - advised to come to [facility] acupuncture - order labs and f/u with me in 4-5 weeks Tinnitus of right ear 05/19/2024 Assessment & Plan (05/19/2024 12:12 PM EDT): - reassurance - dicussed with pt regarding the nature of the symptoms - she does not seem to have hearing loss, will f/u PRN Right sided weakness 05/19/2024 Assessment & Plan (05/19/2024 12:09 PM EDT): - r/o right CTS vs complex migraine - will obtain records from previous PCP/MRI - order right hand NCS Acute right-sided low back pain with right-sided sciatica 05/19/2024 Assessment & Plan (07/03/2024 2:01 PM EDT): Partially improved, can increase Tylenol up to 1000 mg 3x prn for up to 5 days only. Alternate with ibuprofen 400 mg every 8 hrs prn pain + Flexeril BID prn pain. Advised to use a shower chair and grab bars to prevent falls, I will send a rx for insurance auth. Assessment & Plan (06/13/2024 12:12 PM EDT): Most likely muscle spasms/lumbar sprain. Advised to apply heat to affected area and diclofenac gel. Use Tylenol + Flexeril x 2 weeks for dizziness. Refer to PT. I give her information about acupuncture clinic. Will consider trigger point injections. Follow up in 3 months. Assessment & Plan (05/19/2024 12:12 PM EDT): - seems to be muscular , symptoms have not improved with PT - order x-ray and obtain records from previous PCP - use Tylenol PRN Moderate persistent asthma without complication 10/10/2023 Assessment & Plan (07/03/2024 11:23 AM EDT): Seemingly improving with Asmanex 200 mg BID. Continue Albuterol prn. Advised regarding weight reduction. Agreed to influenza vaccine today. Assessment & Plan (05/19/2024 12:10 PM EDT): - unlcear diagnosis, might be related to smoked, r/o COPD - order PFTs? - advised to quit smoking, not ready for nicotine replacement therapy - continue Albuterol PRN for now History of uterine fibroid 10/10/2023 Urinary incontinence 10/10/2023 Alcohol abuse 05/04/2023 Mixed anxiety and depressive disorder 05/04/2023 Overview (05/20/2024): Sees therapist Chiqui from the [facility] ph# [phone] Assessment & Plan (07/03/2024 11:25 AM EDT): Seems to be dealing well with situation of kids, has good support from psychotherapist. Follow up with psychotherapist prn, feels safe at home. Assessment & Plan (05/19/2024 12:11 PM EDT): - seems to be dealing well with previous trauma - f/u with therapist (Dr. Florian of [facility]) - feels safe at home and has crisis number Resolved Problems Problem Noted Date Diagnosed Date Resolved Date Elevated blood pressure reading 06/13/2024 03/26/2025 Assessment & Plan (06/13/2024 12:08 PM EDT): Unclear if related to pain. Check BP at next appointment. Encounters Date Type Department Care Team Description 03/26/2025 3:40 PM EDT Office Visit [facility] [address] [place] [phone] Shea King DO Chronic bilateral low back pain with right-sided sciatica (Primary Dx); Polyarthralgia; Anxiety; Subcutaneous nodule 03/26/2025 Travel 03/03/[address] [facility] [address] [place] [phone] Elissa Hargrove MD 01/27/[address] [facility] [address] [place] [phone] Elissa Hargrove MD 01/07/2025 3:20 PM EDT Office Visit [facility] [address] [place] [phone] Elissa Hargrove MD Acute exacerbation of chronic low back pain (Primary Dx); Chronic left-sided thoracic back pain 01/07/2025 Travel 01/02/[address] [facility] [address] [place] [phone] Elissa Hargrove MD Appointment Request from Last 3 Months Immunizations Immunization Administration Dates Next Due Influenza, seasonal, injectable, preservative fr ee 07/03/2024 MMR 06/15/2017 Pneumococcal Polysaccharide PPSV23 08/15/2021 Tdap 07/12/2018,06/23/2011 Social History Tobacco Use Types Packs/Day Years Used Date Smoking Tobacco: Some Days Cigarettes Cigars Tobacco Cessation:Ready to Q uit: Not Asked; Counseling Given: Not Answered Alcohol Use Standard Drinks/Week Comments Not Currently 0 (1 standard drink = 0.6 oz pur e alcohol) social Housing Stability Answer Date Recorded What is your housing situation today? I have rosie maldonado 05/19/[address] you li ve. Do you have problems with any of the following? None of the above 05/19/2024 Food Insecurity Answer Date Recorded Within the past 12 months, y ou worried that your food would run out before you got money to buy more: Never True 05/19/2024 Within the past 12 months,th e food you bought just didn't last and you didn't have enough money to get more: Never True 05/2024 Transportation Answer Date Recorded In the past 12 months, has l ack of transportation kept you from medical appts, meetings, work or from getting things needed for daily living? No 05/19/2024 Utilities Answer Date Recorded In the past 12 months, has t he electric, gas, oil or water company threatened to shut off services in your home? Yes 05/19/2024 Internet Access Answer Date Recorded Internet Access Q1 No 05/19/2024 Internet Access Q2 I do not want or need it 05/2024 Comments No Sex and Gender Information Value Date Recorded Sex Assigned at Female 07/10/2022 10:37 AM EDT Legal Sex Female 10:37 AM EDT Gender Identity Female 07/10/2022 10:37 AM EDT Sexual Orientation Straight 07/10/2022 10 :37 AM EDT Last Filed Vital Signs Vital Sign Reading Time Taken Comments Blood Pressure 144/82 03/26/2025 2:54 PM EDT Pulse 83 03/26/2025 2:54 PM EDT Temperature 36.8 C (98.2 F) 03/26/2025 2:54 PM EDT Respiratory Rate 18 03/26/2025 2:54 PM EDT Oxygen Saturation 97% 03/26/2025 2:54 PM EDT Inhaled Oxygen Concentration - - Weight 112 kg (246 lb 12.8 oz) 03/26/2025 2:54 P M EDT Height 165.1 cm (5' 5 ) 07/03/2024 10:41 AM EDT Body Mass Index 41.07 07/03/2024 10:41 AM EDT Plan of Treatment Upcoming Encounters Date Type Department Care Team (Late st Contact Info) Description 04/09/2025 10:15 AM EDT Office Visit [facility] [address] [place] [address] Elissa Hargrove MD [address] [place], [place] [phone] Health Maintenance Due Date Last Done Comments Dental Oral Exam 1982 Dental Prophylaxis 1982 Dental X-Ray: Bitewings 1982 Dental X-Ray: Full Mouth 1982 Depression Screening 1982 HIV Screening 1982 Disability Screening 1982 Alcohol/Substance Use Screening 1994 Family Planning (PISQ) 1997 HPV Vaccines (1 - 3-dose series) 1997 Hepatitis C Screening 2000 Hepatitis B Vaccines (1 of 3 - 19+ 3-dose series) 2001 Pap Smear 2003 Cervical Cancer Screening 2012 HPV/Cotest 2012 Pneumococcal Vaccine: Pediatrics (0 to 5 Years) and At-Risk Patients (6 to 49) Years (2 of 2 - PCV) 08/15/2022 08/15/2021 Mammogram 2022 COVID-19 Vaccine ( - season) 2024 Influenza Vaccine (#1) 2025 , 08/15/2021, 07/12/2018, Additional history exists SDOH Screening 05/19/2025 05/19/2024 Tobacco Screening 03/26/2026 03/26/2025 DTaP/Tdap/Td Vaccines (3 - Td or Tdap) 07/12/2028 07/12/2018, 06/23/2011 Lipid Panel 05/20/2029 05/20/2024 Zoster Vaccines (1 of 2) 2032 RSV Patients and Patients Aged 60 years or older (1 - 1-dose 75+ series) 2057 HIB Vaccines Aged Out No longer eligi ble based on patient's age to complete this topic Hepatitis A Vaccines Aged Out No long er eligible based on patient's age to complete this topic IPV Vaccines Aged Out No longer eligi ble based on patient's age to complete this topic Meningococcal B Vaccine Aged Out No l onger eligible based on patient's age to complete this topic Meningococcal Vaccine Aged Out No karolina shavon eligible based on patient's age to complete this topic RSV under 20 months Aged Out No longe r eligible based on patient's age to complete this topic Rotavirus Vaccines Aged Out No longer eligible based on patient's age to complete this topic Procedures Procedure Name Priority Date/Time Associated Diagnosis Comments LIPID PANEL WITH REFLEX TO DIRECT LDL Routine 05/20/2024 12:19 PM EDT Other headache syndrome Mixed anxiety and depressive disorder from Last 3 Months or Most Recently Relevant to Health Maintenance Results * (ABNORMAL) Lipid Panel with Reflex to Direct LDL (05/20/2024 12:19 PM EDT) Triglycerides 121 <150 mg/dL [facility] Comment:Desirable Triglyceri de: less than 150 mg/dLBorderline High Triglyceride 150-199 mg/dLHigh Triglyceride: 200-499 mg/dLVery High Triglyceride: greater than or equal to 5OO mg/dL Cholesterol 186 <200 mg/dL [facility] Comment:Desirable Cholestero l: less than 200 mg/dLBorderline High Cholesterol: 200-239 mg/dLHigh Cholesterol: greater than 239 mg/dL LDL Cholesterol Calculated 102(H) <100 mg/dL [facility] Comment:Desirable LDL: less than 100 mg/dLNear Optimal/Above Optimal LDL: 110- 129 mg/dLBorderline High LDL: 130-159 mg/dLHigh LDL: 160-189 mg/dLVery High LDL: greater than or equal to 190 mg/dL HDL Cholesterol 60 >40 mg/dL [facility] Comment:Desirable HDL: great er than 40 mg/dL Note: This HDL assay may give artificially low results in patients with liver disease. Blood 05/20/2024 12:1 9 PM EDT 05/20/2024 1:04 PM EDT Elissa Hargrove MD LAB BLOOD ORDERABLES Fin al Result [facility] [address] [place] [address] [phone] from Last 3 Months or Most Recently Relevant to Health Maintenance Insurance [employer] STAND ADULT Care Teams Sports Nutritionist Relationship Specialty Start Date End Date Elissa Hargrove MD [address] [place] [address] PCP - General Internal Medicine 05/19/24
[2025-03-27 13:03] LABS: Hematocrit 43.4 % (37.0-47.0); Hemoglobin 14.1 g/dl (12.0-16.0); Mean Corpuscular HGB Conc 32.5 g/dl (31.0-35.0); Mean Corpuscular Hemoglobin 27.1 pg (27.0-33.0); Mean Corpuscular Volume 83.3 fL (80.0-98.0); NRBC Abs Auto 0.000 X10*3/uL (0.0-0.012); NRBC Pct Auto 0.0 /100WBC (0.0-0.2); Platelet Count 245 X10*3/uL (160-400); Red Blood Count 5.21 X10*6/uL (4.20-5.50); White Blood Count 8.2 X10*3/uL (4.8-10.8)
[2025-03-27 13:19] LABS: Hemoglobin A1C 122.6069 umol/L; Total Hemoglobin (HGBA1C) 3647.0163 umol/L
[2025-03-27 13:42] LABS: Alanine Aminotransferase 35 U/L (0-31); Albumin Level 4.4 g/dL (3.5-5.0); Alkaline Phosphatase 44 U/L (39-117); Anion Gap 11 (12-20); Aspartate Amino Transferase 31 U/L (5-31); Blood Urea Nitrogen 8 mg/dL (9-16); Calcium 9.1 mg/dL (8.4-10.2); Carbon Dioxide 26 mmol/L (22-29); Chloride 105 mmol/L (96-108); Cholesterol 209 mg/dL (<200); Estimated Glomerular Filt Rate > 60; HDL Cholesterol 56 mg/dL (>40); Potassium 4.4 mmol/L (3.3-5.1); Sodium 138 mmol/L (135-145); Total Protein 7.1 g/dL (6.5-8.0); Triglycerides 197 mg/dL (<150)
[2025-03-27 13:49] LABS: Free T4 (Free Thyroxine) 0.94 ng/dL (0.71-1.85); Thyroid Stimulating Hormone 1.75 uIU/mL (0.32-4.0)
[2025-03-30 20:53] LABS: Lyme Abs Screen <0.90 index
[2025-04-03 14:53] LABS: Anti Nuclear Antibody Pattern Nuclear, Speckled; Anti Nuclear Antibody Screen POSITIVE (NEGATIVE); Anti Nuclear Antibody Titer 1:80 titer
== END 2025-03-27 10:38 | disposition home or self-care (01) ==
LOC: HO.HHCL 10:37
PROVIDERS: PCP Internal Medicine; Visit Provider Family Medicine
DX: Z01.84 Encounter for antibody response examination (principal); M25.50 Pain in unspecified joint
CPT/HCPCS: 36415; 80048; 80061; 80076; 82306; 83036; 84439; 84443; 85027; 85652; 86038; 86039; 86140; 86431; 86617; 86618

== ENCOUNTER 2025-05-05 09:48 | Outpatient (AMB) | payer MEDICAID, SELFPAY ==
--- NOTE | 2025-05-05 09:52 | A.OFFVIS_ITS ---
Vital Signs 3 05/05/25 10:04 Height 5 ft 5 in Weight 246 lb 4 oz BMI 41.0 BP 158/85 H Blood Pressure Location Lt brachial Position Sitting Pulse 92 Intake Visit Reasons: sub cutaneous nodule/swelling (L) LE Intake Note: Patient is seen in office for evaluation of a nodule of the right lower leg. Pt c/o: bilateral leg swelling, worse on the right side, has a lump on the right lower leg, notice it 02/2025, is firm and more pronounce and painful at the back of the leg MRI sched:05/07/25 us sched: 06/08/25 Global Mobility Specialist Required: No Accompanied by: Self / Same As Patient Allergies No Known Allergies Allergy (Verified 05/05/25 09:59) Medication List - Last Reconciled 05/05/25 by Jesse Sanchez MD acetaminophen 500 mg PO Q6H PRN albuterol sulfate 90 mcg/actuation (Ventolin HFA) 2 puffs inhalation QID PRN blood pressure test kit-large (Omron Blood Pressure Monitor-3 Series kit) As directed cyclobenzaprine 10 mg PO BEDTIME diclofenac sodium 1% topical ergocalciferol (vitamin D2) 1,250 mcg PO QWEEK ibuprofen 400 mg PO HPI Comments Details: The patient is a 44 y/o woman with PMH low back pain, asthma presenting for evaluation of the R lower extremity mass. She said she noticed it around mid- February. It was soft, non tender, constant, and on the R lateral calf. She said it does not bother her and has not changed significantly since she first noticed it. She also reports significant low back pain, sciatic leg pain, and wrist nerve issues, for which she is getting an MRI and being seen by rheumatology. [facility] Medical History Carpal tunnel syndrome Asthma Surgical History History of 3 sections Social History Patient Tobacco Use Status: Never used Tobacco Review of Systems Const All systems reviewed & are unremarkable except as noted in HPI and below Physical Exam Const General: cooperative and healthy appearing Orientation/consciousness: patient oriented x3 Skin General skin exam: no erythema Rashes: no rashes Neuro General: patient oriented x3 Extrem Other: Bluish discoloration in the right lateral mid calf. Seems to decrease in size with leg elevation. Findings suggestive of a varicosity. No tenderness to palpation. Left lower extremity: lower leg (1cm lump, depressible, without erythema or tenderness to palpation) Details: localized swelling Location: of the mid lower leg Ankle/foot/toe images: 2 1. 1 cm soft tissue mass with bluish discoloration suggestive of a varicosity. Assessment & Plan Assessment & Plan (1) Varix of lower extremity: Code(s): I83.90 - Asymptomatic varicose veins of unspecified lower extremity Category: Medical Qualifiers: Varicose vein complication: asymptomatic Laterality: right Qualified Code(s): I83.91 - Asymptomatic varicose veins of right lower extremity Plan The patient is a 44 y/o woman with PMH low back pain, asthma presenting for evaluation of the R lower extremity mobile non tender mass. Findings on examination appeared to be consistent with a varicosity with an overlying bluish discoloration in decrease in size with the leg elevation. We will await the evaluation with ultrasound. Findings on examination however appear benign and no surgical intervention is recommended at this time. Coding Level of Care Code New Pt Level 4 (27506) Diagnoses Asymptomatic varicose veins of right lower extremity I83.91 Varicose vein complication: asymptomatic Laterality: right
[2025-05-05 10:04] VITALS: BP 158/85; PULSE 92; BMI 41.0
--- OUTSIDE RECORDS SUMMARY | 2025-05-05 10:33 | XMS_ITS | Encounter Summary ---
Author Organization [facility] Address [address] [place] [address] [address] [place] [address] Care Team Providers Care Electrical Foreman Name Role Phone Elissa Hargrove MD Primary Care Provider + Reason for Referral * Consultation (Routine) - Pending Review Specialty Diagnoses / Procedures Referred By Padmini ag Referred To Contact Rheumatology Diagnoses Polyarthralgia Positive ELISSA (antinuclear antibody) Shea King DO [address] [place] [address] Phone: tel: fax: Referral ID Status Reason Start Date Expiration Date Visits Requested Visits Authorized [id number] Pending Review Specialty Services Required 05/03/2025 05/03/2026 1 1 Encounter Details Date Type Department Care Team (Late st Contact Info) Description 05/03/2025 Orders Only [facility] [address] [place], [place] [phone] Shea King DO [address] [place], [place] [phone] Polyarthralgia (Primary Dx); Positive ELISSA (antinuclear antibody) Social History Tobacco Use Types Packs/Day Years Used Date Smoking Tobacco: Some Days Cigarettes Cigars Alcohol Use Standard Drinks/Week Comments Not Currently [...] Orientation Straight 07/10/2022 10 :37 AM EDT documented as of this encounter Progress Notes * Shea King DO - 05/03/2025 11:32 PM EDT Rheum referral placed. documented in this encounter Plan of Treatment Scheduled Referrals Name Type Priority Associated Diagnoses Order Schedule Referral to Rheumatology Outpatient Referral Routine Polyarthralgia Positive ELISSA (antinuclear antibody) Expected: 05/03/2025 (Approximate), Expires: 05/03/2026 documented as of this encounter Visit Diagnoses Diagnosis Polyarthralgia- Primary Pain in joint, multiple sites Positive ELISSA (antinuclear antibody) Other and unspecified nonspecific immunological findings documented in this encounter Care Teams Electrical Foreman Relationship Specialty Start Date End Date Elissa Hargrove MD [address] [place] [id number] PCP - General Internal Medicine 05/19/24 documented as of this encounter
--- OUTSIDE RECORDS SUMMARY | 2025-05-05 10:33 | XMS_ITS | Encounter Summary ---
Author Organization [facility] Address [address] [facility] [address] [place] [address] Care Team Providers Care Dish Up Person Name Role Phone Elissa Hargrove MD Primary Care Provider + Reason for Visit * Reason Comments Med Refill Encounter Details Date Type Department Care Team ([facility] st Contact Info) Description 01/27/2025 Refill [facility] [address] [place], [place] [phone] Elissa Hargrove MD [address] [place], [place] [phone] Social History Tobacco Use Types Packs/Day Years Used Date Smoking Tobacco: Some Days Cigarettes Cigars Alcohol Use Standard Drinks/Week Comments Not Currently 0 (1 standard drink = 0.6 oz pur e alcohol) social Housing Stability Answer Date Recorded What is your housing situation today? I have rosie joel 05/19/[address] you li [...] t he electric, gas, oil or water [employer] threatened to shut off services in your [...] AM EDT documented as of this encounter Plan of Treatment Not on file documented as of this encounter Visit Diagnoses Not on filedocumented in this encounter Care Teams Dish Up Person Relationship Specialty Start Date End Date Elissa Hargrove MD [address] [place] [phone] PCP - General Internal Medicine 05/19/24 documented as of this encounter
--- OUTSIDE RECORDS SUMMARY | 2025-05-05 10:33 | XMS_ITS | Encounter Summary ---
Author Organization [facility] Address [address] [place] [address] [address] [place] [address] Care Team Providers Care Head Grinder Name Role Phone Elissa Hargrove MD Primary Care Provider + Reason for Visit * Reason Comments Med Refill Encounter Details Date Type Department Care Team ([facility] st Contact Info) Description 11/19/2023 Refill [facility] [address] [place] [address] [phone] Name, MD Ernie [address] [place] [address] [phone] Social History Tobacco Use Types Packs/Day Years Used Date Smoking Tobacco: Every Day Cigarettes Cigars Alcohol Use Standard Drinks/Week Comments Yes 0 (1 standard drink = 0.6 oz pur e alcohol) social Comments Unknown Sex and Gender Information Value Date Recorded Sex Assigned at Female 07/10/2022 10:37 AM EDT Legal Sex Female 10:37 AM EDT Gender Identity Female 07/10/2022 10:37 AM EDT Sexual Orientation Straight 07/10/2022 10 :37 AM EDT documented as of this encounter Plan of Treatment Not on file documented as of this encounter Visit Diagnoses Not on filedocumented in this encounter Care Teams Head Grinder Relationship Specialty Start Date End Date Elissa Hargrove MD [address] [place] [phone] PCP - General Internal Medicine 05/19/24 documented as of this encounter
--- OUTSIDE RECORDS SUMMARY | 2025-05-05 10:33 | XMS_ITS | Encounter Summary ---
Author Organization [facility] Address [address] [facility] [address] [place] [address] Care Team Providers Care Gis Mapping Technician Name Role Phone Elissa Hargrove MD Primary Care Provider + Reason for Visit * Reason Onset Date Comments Med Refill 12/25/2024 Encounter Details Date Type Department Care Team ([facility] st Contact Info) Description 12/25/2024 Refill [facility] [address] [place] [address] [phone] Name, MD Ernie [address] [place] [address] Moderate persistent asthma without complication Social History Tobacco Use Types Packs/Day Years [...] as of this encounter Visit Diagnoses Diagnosis Moderate persistent asthma without complication documented in this encounter Care Teams Gis Mapping Technician Relationship Specialty Start Date End Date Elissa Hargrove MD [address] [place] [id number] PCP - General Internal Medicine 05/19/24 documented as of this encounter
--- OUTSIDE RECORDS SUMMARY | 2025-05-05 10:33 | XMS_ITS | Clinical Summary ---
Author Organization [employer] Address [address] [place] [address] 7[address] [place] [address] Care Team Providers Care Pearl Peller Name Role Phone Elissa Hargrove MD Primary Care Provider + Allergies No known active allergies Medications zolpidem (Ambien) 5 MG tablet TAKE 1 TABLET BY MOUTH AT BEDTIME NEEDED FOR SLEEP ONSET 3 Active Blood Pressure Monitoring (Blood Pressure Cuff) misc Use daily as prescribed 1 each 4 Active Mometasone Furoate (Asmanex HFA) 100 MCG/ACT aerosolIndication s:Moderate persistent asthma without complication INHALE 2 PUFFS BY MOUTH TWICE A DAY. RINSE MOUTH AFTER USE. 39 g 3 5 Active Ventolin HFA 108 (90 Base) MCG/ACT inhalerIndication s:Moderate persistent asthma without complication INHALE 2 PUFFS 4 TIMES A DAY NEEDED FOR WHEEZING 18 g 11 5 Active meloxicam (Mobic) 15 MG tablet TAKE 1 TABLET BY MOUTH ONCE DAILY 30 tablet 5 Active naproxen (Naprosyn) 500 MG tablet Take 1 tablet (500 mg) by mouth if needed in the morning and at bedtime for mild pain. 40 tablet 1 5 03/26/20 26 Active baclofen (Lioresal) 10 MG tablet Take 1 tablet (10 mg) by mouth if needed in the morning, at noon, and at bedtime for muscle spasms. 60 tablet 1 5 05/25/20 25 Active acetaminophen (Tylenol 8 Hour) 650 MG ER tablet Take 1 tablet (650 mg) by mouth every 8 (eight) hours if needed for mild pain. Do not crush, chew, or split. 50 tablet 1 5 03/26/20 26 Active Diclofenac Sodium 1 % gel Apply 2 g topically if needed in the morning, at noon, in the evening, and at bedtime (pain). 150 g 3 5 Active Active Problems Problem Noted Date Diagnosed Date [...] records from previous PCP and MRI from [facility] - advised to come to [facility] acupuncture - order labs and f/u with [...] Overview (05/20/2024): Sees therapist Chiqui from the [facility] ph# [phone] Assessment & Plan (07/03/2024 11:25 AM EDT): Seems to be dealing well with situation of kids, has good support from psychotherapist. Follow up with psychotherapist prn, feels safe at home. Assessment & Plan (05/19/2024 12:11 PM EDT): - seems to be dealing well with previous trauma - f/u with therapist (Dr. Florian of [facility]) - feels safe at home and has crisis number Resolved Problems Problem Noted Date Diagnosed Date Resolved Date Elevated blood pressure reading 06/13/2024 03/26/2025 Assessment & Plan (06/13/2024 12:08 PM EDT): Unclear if related to pain. Check BP at next appointment. Encounters Date Type Department Care Team Description 05/03/2025 Orders Only [facility] [address] [place] [address] Shea King DO Polyarthralgia (Primary Dx); Positive ELISSA (antinuclear antibody) 04/21/2025 Telephone [facility] [address] [place] [phone] Elissa Hargrove MD Results 04/09/[address] [address] Elissa Hargrove MD No Show 04/08/[address] [address] Elissa Hargrove MD Chart Prep 04/02/2025 Results Follow-Up [address] [phone] Elissa Hargrove MD T4, Free, Lipid Panel, Standard, TSH, Additional followed-up results: 10 03/31/2025 Telephone [facility] [address] [place] [phone] Elissa Hargrove MD Results 03/26/2025 3:40 PM EDT Office Visit [facility] [address] [place] [phone] Shea King DO Chronic bilateral low back pain with right-sided sciatica (Primary Dx); Polyarthralgia; Anxiety; Subcutaneous nodule 03/26/2025 Travel 03/03/2025 Refill [facility] [address] [place] [phone] Elissa Hargrove MD from Last 3 Months Immunizations Immunization Administration [...] 07/03/2024 10:41 AM EDT Plan of Treatment Health Maintenance Due Date Last Done Comments [...] PCV) 08/15/2022 08/15/2021 Mammogram 2022 COVID-19 Vaccine (1 - season) 2024 Influenza Vaccine (#1) 2025 , 08/15/2021, 07/12/2018, Additional history exists SDOH Screening 05/19/2025 05/19/2024 Tobacco Screening 03/26/2026 03/26/2025 DTaP/Tdap/Td Vaccines (3 - Td or Tdap) 07/12/2028 07/12/2018, 06/23/2011 Lipid Panel 03/27/2030 03/27/2025, 05/20/2024 Zoster Vaccines (1 of 2) 2032 [...] Procedure Name Priority Date/Time Associated Diagnosis Comments C-REACTIVE PROTEIN Routine 03/27/2025 10 :54 AM EDT Polyarthralgia SED RATE BY MODIFIED WESTERGREN Routine 03/27/2025 10:54 AM EDT Polyarthralgia RHEUMATOID FACTOR Routine 03/27/2025 10: 54 AM EDT Polyarthralgia LYME DISEASE AB W/REFL TO BLOT (IGG, IGM) Routine 03/27/2025 10:54 AM EDT Polyarthralgia ELISSA SCREEN, IFA, W/REFL TITER AND PATTERN Routine 03/27/2025 10:54 AM EDT Polyarthralgia BASIC METABOLIC PANEL Routine 03/27/2025 10:54 AM EDT Polyarthralgia CBC Routine 03/27/2025 10:54 AM EDT Polyarthralgia HEMOGLOBIN A1C Routine 03/27/2025 10:54 AM EDT Polyarthralgia HEPATIC FUNCTION PANEL Routine 03/27/2025 10:54 AM EDT Polyarthralgia VITAMIN D,25-OH,TOTAL,IA Routine 03/27/2025 10:54 AM EDT Polyarthralgia TSH Routine 03/27/2025 10:54 AM EDT Polyarthralgia LIPID PANEL, STANDARD Routine 03/27/2025 10:54 AM EDT Polyarthralgia T4, FREE Routine 03/27/2025 10:54 AM EDT Polyarthralgia from Last 3 Months Results * (ABNORMAL) Vitamin D, 25-Hydroxy, Total, Immunoassay (03/27/2025 10:54 AM EDT) Vitamin D 25-OH Total 29.6(L) >30 ng/mL [facility] Comment: Health Based Reference Values*< 20 ng/mL Hphrkyekz17-70 ng/mL Insufficient> 30 ng/mL Sufficient*Karen OLIVAS. N Engl J Med. 2007;357:266-280There is no well-established upper level of normal vitamin Dlevels. Some laboratories use 50 ng/mL as an upper limit ofnormal. However, toxicity is patient-dependent and may occurat any level. Careful correlation with the patient'spresentation is necessary and, if there is concern forvitamin D toxicity, treatment should be consideredirrespective of the serum level.Care must be taken in interpreting Vitamin D results fromdifferent laboratories and methodologies. Published datademonstrated that results from patients undergoinghemodialysis may show a negative bias when tested withvarious automated 25-OH vitamin D assays when compared toLC-MS/MS.When testing samples from patients whose predominant form ofVitamin D is Vitamin D2, such as patients receiving VitaminD2 supplementation, results that are subtherapeutic shouldbe confirmed with another method such as LC-MS/MS. Blood Venous blood specimen / Unknown 03/27/2025 10:54 AM EDT 03/27/2025 12:58 PM EDT us Shea King DO LAB BLOOD ORDERABLES Final R esult [facility] [address] [place] [phone] * Lyme Disease Ab with Reflex to Blot (IgG, IgM) (03/27/2025 10:54 AM EDT) Lyme Antibody Screen <0.90 index [facility] Comment:Index Interpretation ----- < 0.90 Negative 0.90-1.09 Equivocal > 1.09 PositiveAs recommended by the Food and Drug Administration(FDA), all samples with positive or equivocalresults in a Borrelia burgdorferi antibody screenwill be tested using a blot method. Positive orequivocal screening test results should not beinterpreted as truly positive until verified as suchusing a supplemental assay (e.g., B. burgdorferi blot).The screening test and/or blot for B. burgdorferiantibodies may be falsely negative in early stagesof Lyme disease, including the period when erythemamigrans is apparent.THIS TEST WAS PERFORMED AT:[facility] [place] [id number] TAPIA MD Lyme Blot TNP [facility] 03/27/2025 10:5 4 AM EDT 03/27/2025 12:58 PM EDT [facility] LAB BLOOD ORDERABLES Final R esult Performing Organization Address [facility] Co de Phone Number [facility] [address] [place] [phone] * Sed Rate by Modified Soila (03/27/2025 10:54 AM EDT) Erythrocyte Sedimentation Rate 2 0 - 20 MM/HR [facility] Comment:Patients with polycy themia and many hemoglobin abnormalitiesmay have depressed sed rates whereas patients with anemiamay have elevated sed rates. Blood Venous blood specimen / Unknown 03/27/2025 10:54 AM EDT 03/27/2025 12:55 PM EDT Shea King LAB BLOOD ORDERABLES Final R esult Performing Organization Address [facility] Co de Phone Number [facility] [address] [place] [phone] * CBC (03/27/2025 10:54 AM EDT) White Blood Count 8.2 4.8 - 10.8 X10*3/uL [facility] Red Blood Count 5.21 4.20 - 5.50 X10*6/uL [facility] Hemoglobin 14.1 12.0 - 16.0 g/dl [facility] Hematocrit 43.4 37.0 - 47.0 % [facility] Mean Corpuscular Volume 83.3 80.0 - 98.0 fL [facility] Mean Corpuscular Hemoglobin 27.1 27.0 - 33.0 pg [facility] Mean Corpuscular HGB Conc 32.5 31.0 - 35.0 g/dl [facility] Red Cell Distribution Width 13.2 11.0 - 16.0 % [facility] Platelet Count 245 160 - 400 X10*3/uL [facility] Mean Platelet Volume 9.4 9.4 - 12.3 fL [facility] NRBC Pct Auto 0.0 0.0 - 0.2 /100WBC [facility] NRBC Abs Auto 0.000 0.0 - 0.012 X10*3/uL [facility] Blood Venous blood specimen / Unknown 03/27/2025 10:54 AM EDT 03/27/2025 12:55 PM EDT Shea King LAB BLOOD ORDERABLES Final R esult Performing Organization Address City/[facility]/ZIP Co de Phone Number [facility] [address] [place] [phone] * Rheumatoid Factor (03/27/2025 10:54 AM EDT) Rheumatoid Factor <13.0 <15.0 IU/mL [facility] Blood Venous blood specimen / Unknown 03/27/2025 10:54 AM EDT 03/27/2025 12:55 PM EDT [facility] [employer] LAB BLOOD ORDERABLES Final R esult Performing Organization Address City/[facility] Co de Phone Number [facility] [address] [place] [phone] * C-reactive Protein (03/27/2025 10:54 AM EDT) C Reactive Protein 0.17 < or = 0.50 mg/dL [facility] Blood Venous blood specimen / Unknown 03/27/2025 10:54 AM EDT 03/27/2025 12:58 PM EDT us Shea King DO LAB BLOOD ORDERABLES Final R esult [facility] [address] [place] [phone] * (ABNORMAL) ELISSA Screen,IFA, with Reflex to Titer and Pattern (03/27/2025 10:54 AM EDT) Anti Nuclear Antibody Screen POSITIVE (A) NEGATIVE [facility] Comment:ELISSA IFA is a first l ine screen for detecting thepresence of up to approximately 150 autoantibodies invarious autoimmune diseases. A positive ELISSA IFA resultis suggestive of autoimmune disease and reflexes totiter and pattern. Further laboratory testing may beconsidered if clinically indicated.For additional information, please refer [email or web address].[email or web address]-[email or web address]/[email or web address](This link is being provided for informational/educational purposes only.) ELISSA Titer 1:80(A) titer [facility] Comment:A low level ELISSA tite r may be present in pre-clinicalautoimmune diseases and normal individuals. Reference Range <1:40 Negative 1:40-1:80 Low Antibody Level >1:80 Elevated Antibody Level ELISSA Pattern Nuclear, Speckled (A) [facility] Comment:Speckled pattern is associated with mixed connectivetissue disease (MCTD), systemic lupus erythematosus(SLE), Sjogren's syndrome, dermatomyositis, andsystemic sclerosis/polymyositis overlap.AC-2,4,5,29: SpeckledInternational Consensus on ELISSA Patterns(https://doi.org/10.1515/fkcq-8312-6457)THIS TEST WAS PERFORMED AT:[facility] [place] [phone] TAPIA MD ELISSA TITER 2 (REF LAB) [facility] ELISSA Pattern 2 [facility] ELISSA TITER 3 [facility] ELISSA PATTERN 3 [facility] Blood Venous blood specimen / Unknown 03/27/2025 10:54 AM EDT 03/27/2025 12:58 PM EDT Shea King DO LAB BLOOD ORDERABLES Final R esult Performing Organization Address City/[facility]/ZIP Co de Phone Number [facility] [address] [place] [phone] * TSH (03/27/2025 10:54 AM EDT) Thyroid Stimulating Hormone 1.75 0.32 - 4.0 uIU/mL [facility] Comment:TSH 3rd Generation ( [employer]) Blood Venous blood specimen / Unknown 03/27/2025 10:54 AM EDT 03/27/2025 12:58 PM EDT Shea King LAB BLOOD ORDERABLES Final R esult Performing Organization Address [facility] Co de Phone Number [facility] [address] [place] [phone] * T4, Free (03/27/2025 10:54 AM EDT) Free T4 (Free Thyroxine) 0.94 0.71 - 1.85 ng/dL [facility] Blood Venous blood specimen / Unknown 03/27/2025 10:54 AM EDT 03/27/2025 12:58 PM EDT Shea King DO LAB BLOOD ORDERABLES Final R esult Performing Organization Address [facility] Co de Phone Number [facility] [address] [place] [phone] * Hemoglobin A1c (03/27/2025 10:54 AM EDT) Hemoglobin A1c 5.2 <6.0 % [facility] Comment:Hemoglobin A1C Refer ence Range Adults: 4.8 - 6.0 % Non diabetic: < 6.0 % Goal: < 7.0 %Additional Action Suggested: > 8.0 %Note: Hemoglobin A1c results are invalid for patients with abnormal amounts of HbF. Blood transfusions may impact the HbA1c concentration in the patient sample. Estimated Average Glucose 103 mg/dL [facility] Comment:eAG = Estimated ave rage glucose which is %A1C expressed asaverage glucose, using the formula of the Q9W-CuezxngYnkvfoh Glucose study (ADAG), Diabetes Care, Vol.31,#8,Apr. 2007 Blood Venous blood specimen / Unknown 03/27/2025 10:54 AM EDT 03/27/2025 12:55 PM EDT Shea King LAB BLOOD ORDERABLES Final R esult Performing Organization Address [facility]/ZIP Co de Phone Number [facility] [address] [place] [phone] * (ABNORMAL) Hepatic Function Panel (03/27/2025 10:54 AM EDT) Bilirubin, Total 0.6 0.0 - 1.0 mg/dL [facility] Bilirubin, Direct 0.2 0.0 - 0.5 mg/dL [facility] Aspartate Amino Transferase 31 5 - 31 U/L [facility] Alanine Aminotransferase 35(H) 0 - 31 U/L [facility] Total Protein 7.1 6.5 - 8.0 g/dL [facility] Albumin Level 4.4 3.5 - 5.0 g/dL [facility] Alkaline Phosphatase 44 39 - 117 U/L [facility] Blood Venous blood specimen / Unknown 03/27/2025 10:54 AM EDT 03/27/2025 12:58 PM EDT Shea King DO LAB BLOOD ORDERABLES Final R esult Performing Organization Address [facility] Co de Phone Number [facility] [address] [place] [phone] * (ABNORMAL) Lipid Panel, Standard (03/27/2025 10:54 AM EDT) Triglycerides 197(H) <150 mg/dL [facility] Comment:Desirable Triglyceri de: less than 150 mg/dLBorderline High Triglyceride 150-199 mg/dLHigh Triglyceride: 200-499 mg/dLVery High Triglyceride: greater than or equal to 5OO mg/dL Cholesterol 209(H) <200 mg/dL [facility] Comment:Desirable Cholestero l: less than 200 mg/dLBorderline High Cholesterol: 200-239 mg/dLHigh Cholesterol: greater than 239 mg/dL LDL Cholesterol Calculated 114(H) <100 mg/dL [facility] Comment:Desirable LDL: less than 100 mg/dLNear Optimal/Above Optimal LDL: 110- 129 mg/dLBorderline High LDL: 130-159 mg/dLHigh LDL: 160-189 mg/dLVery High LDL: greater than or equal to 190 mg/dL HDL Cholesterol 56 >40 mg/dL [facility] Comment:Desirable HDL: great er than 40 mg/dL Note: This HDL assay may give artificially low results in patients with liver disease. Blood Venous blood specimen / Unknown 03/27/2025 10:54 AM EDT 03/27/2025 12:58 PM EDT us Shea King DO LAB BLOOD ORDERABLES Final R esult [facility] [address] [place] [phone] * (ABNORMAL) Basic Metabolic Panel (03/27/2025 10:54 AM EDT) Sodium 138 135 - 145 mmol/L [facility] Potassium 4.4 3.3 - 5.1 mmol/L [facility] Chloride 105 96 - 108 mmol/L [facility] Carbon Dioxide 26 22 - 29 mmol/L [facility] Anion Gap 11(L) 12 - 20 [facility] Urea Nitrogen (BUN) 8(L) 9 - 16 mg/dL [facility] Creatinine, Serum 0.76 0.5 - 1.4 mg/dL [facility] Estimated Glomerular Filt Rate >60 [facility] Comment:Chronic Kidney Disea se: Estimated GFR < 60 mL/min/1.94d4Haczrd Kidney Disease: Estimated GFR < 15 mL/min/1.73m2 Glucose 100 60 - 115 mg/dL [facility] Calcium 9.1 8.4 - 10.2 mg/dL [facility] Blood Venous blood specimen / Unknown 03/27/2025 10:54 AM EDT 03/27/2025 12:58 PM EDT Shea King DO LAB BLOOD ORDERABLES Final R esult [facility] [address] [place] [phone] from Last [address] [place] [address] [place] [address] C3 DENT[facility] MEDICAID STAND ADULT Care Teams Pearl Peller Relationship Specialty Start Date End Date Elissa Hargrove MD [address] [place] [phone] PCP - General Internal Medicine 05/19/24
--- OUTSIDE RECORDS SUMMARY | 2025-05-05 10:33 | XMS_ITS | Encounter Summary ---
Author Organization [employer] Address [address] [place] [address] [address]t [place] [address] Care Team Providers Care Counselor Dormitory Name Role Phone Elissa Hargrove MD Primary Care Provider + Encounter Details Date Type Department Care Team (Late st Contact Info) Description 01/02/2024 Telephone [email or web address] Information Management [address] [place], [place] [phone] Cyndee [place] Social History Tobacco Use Types Packs/Day Years [...] on filedocumented in this encounter Care Teams Counselor Dormitory Relationship Specialty Start Date End Date Elissa Hargrove MD [address] [place], [place] [phone] PCP - General Internal Medicine 05/19/24 documented as of this encounter
== END 2025-05-05 10:38 | disposition home or self-care (01) ==
LOC: HO.HGS 09:49
PROVIDERS: PCP Internal Medicine; Visit Provider Surgery
DX: I83.91 Asymptomatic varicose veins of right lower extremity (principal)
CPT/HCPCS: 99204

== ENCOUNTER → 2025-05-05 09:48 | Outpatient (BNVA) | payer MEDICAID, SELFPAY | PROVIDERS: PCP Internal Medicine; Visit Provider Surgery | DX: I83.91 Asymptomatic varicose veins of right lower extremity (principal) | CPT/HCPCS: 99202 ==

== ENCOUNTER 2025-05-07 18:36 | Outpatient (REF) | payer MEDICAID, SELFPAY ==
--- NOTE | ~2025-05-07 | MR_ITS ---
CLINICAL HISTORY: worsening LBP with R leg pain, paresthesias and weakness MR lumbar spine without Gadolinium Comparison: CR/SR - XR LUMBAR SPINE 4V MIN - 05/19/24 12:27 EDT Findings: 5 lumbar type vertebral bodies are present by plain film. 2 mm of retrolisthesis of L2 on L3. No acute fracture or pathologic bone lesion. Mild reactive signal within the endplates adjacent to the L4-L5 and L5-S1 intervertebral discs. Cauda equina and conus medullaris within normal limits. Paraspinous musculature intact. Ill-defined high T1/T2 signal intensity focus within the right paraspinous musculature measuring 40 mm at the L1 level. L1-L2: No significant canal nor foraminal stenosis. L2-L3:Mild bilateral facet and ligamentum flavum hypertrophy. Mild epidural lipomatosis. Mild diffuse disc bulge. Mild canal stenosis. Mild bilateral foraminal stenosis. L3-L4:Mild facet and ligamentum flavum hypertrophy. Mild epidural lipomatosis. Mild canal stenosis. Mild bilateral foraminal stenosis. L4-L5: Mild disc desiccation and diffuse disc bulge. Mild facet and ligamentum flavum hypertrophy. Mild epidural lipomatosis. Mild canal stenosis. Mild right and moderate left foraminal stenosis. L5-S1:Mild disc desiccation and diffuse disc bulge. Mild bilateral facet hypertrophy. Mild canal stenosis. Mild bilateral foraminal stenosis. IMPRESSION: 1. 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 Initial further assessment with postcontrast enhanced imaging is recommended. 2. Multilevel degenerative disc and facet disease, as well as ligamentum flavum hypertrophy. 3. Mild multilevel canal stenoses. 4. Multilevel mild and moderate foraminal stenoses. This document has been electronically signed by: Mitch Mcdaniel MD on 05/07/2025 20:01:09
--- OUTSIDE RECORDS SUMMARY | 2025-05-07 18:44 | XMS_ITS | Encounter Summary ---
Author Organization [employer] Address [address] [place] [address] [address] [place] [address] Care Team Providers Care Tariff Publishing Agent Name Role Phone Elissa Hargrove MD Primary Care Provider + Reason for Referral * Consultation (Routine) - Pending Review Specialty Diagnoses / Procedures Referred By Padmini ga Referred To Contact Rheumatology Diagnoses Polyarthralgia Positive ELISSA (antinuclear antibody) Shea King DO [address] [place] [address] Phone: tel: fax: Referral ID Status Reason Start Date Expiration Date Visits Requested Visits Authorized [id number] Pending Review Specialty Services Required 05/03/2025 05/03/2026 1 1 Encounter Details Date Type Department Care Team (Late st Contact Info) Description 05/03/2025 Orders Only [facility] [address] [place], [place] [phone] Shea King DO [address] [place], [place] [phone] Polyarthralgia (Primary Dx); Positive ELISSA (antinuclear antibody) [...] findings documented in this encounter Care Teams Tar[employer] Publishing Agent Relationship Specialty Start Date End Date Elissa Hargrove MD [address] [place] [phone] PCP - General Internal Medicine 05/19/24 documented as of this encounter
--- OUTSIDE RECORDS SUMMARY | 2025-05-07 18:44 | XMS_ITS | Encounter Summary ---
Author Organization [employer] Address [address] [place] [address] [address]t [place] [address] Care Team Providers Care Stove Refinisher Name Role Phone Elissa Hargrove MD Primary Care Provider + Reason for Visit * Reason Comments Med Refill Encounter Details Date Type Department Care Team ([facility] st Contact Info) Description 11/19/2023 Refill [facility] [address] [place] [address] [phone] Name, MD Ernie [address] [place] [address] [phone] Social History Tobacco Use Types Packs/Day Years [...] on filedocumented in this encounter Care Teams Stove Refinisher Relationship Specialty Start Date End Date Elissa Hargrove MD [address] [place] [phone] PCP - General Internal Medicine 05/19/24 documented as of this encounter
--- OUTSIDE RECORDS SUMMARY | 2025-05-07 18:44 | XMS_ITS | Encounter Summary ---
Author Organization [employer] Address [address] [facility] [address]t [place] [address] Care Team Providers Care Horseback Excavator Name Role Phone Elissa Hargrove MD Primary Care Provider + Reason for Visit * Reason Comments Med Refill Encounter Details Date Type Department Care Team ([facility] st Contact Info) Description 01/27/2025 Refill [facility] [address] [place], [place] [phone] Elissa Hargrove MD [address] [place], [place] [phone] Social History Tobacco Use Types Packs/Day Years [...] t he electric, gas, oil or water [employer] threatened to shut off services in your [...] on filedocumented in this encounter Care Teams Horseback Excavator Relationship Specialty Start Date End Date Elissa Hargrove MD [address] [place] [phone] PCP - General Internal Medicine 05/19/24 documented as of this encounter
--- OUTSIDE RECORDS SUMMARY | 2025-05-07 18:44 | XMS_ITS | Encounter Summary ---
Author Organization [employer] Address [address] [place] [address] [address] [place] [address] Care Team Providers Care Bumboater Name Role Phone Elissa Hargrove MD Primary Care Provider + Encounter Details Date Type Department Care Team (Late st Contact Info) Description 01/02/2024 Telephone [employer] Information Management [address] [place], [place] [phone] Cyndee [place] Social History Tobacco Use [...] on filedocumented in this encounter Care Teams Bumboater Relationship Specialty Start Date End Date Elissa Hargrove MD [address] [place], [place] [phone] PCP - General Internal Medicine 05/19/24 documented as of this encounter
--- OUTSIDE RECORDS SUMMARY | 2025-05-07 18:44 | XMS_ITS | Clinical Summary ---
Author Organization [employer] Address [address] [place] [address] [address] [place] [address] Care Team Providers Care Cut Out Worker Name Role Phone Elissa Hargrove MD Primary [...] records from previous PCP and MRI from [facility] - advised to come to [facility] acupuncture - order labs and f/u with [...] Overview (05/20/2024): Sees therapist Chiqui from the [facility] ph# [phone] Assessment & Plan (07/03/2024 11:25 AM EDT): Seems to be dealing well with situation of kids, has good support from psychotherapist. Follow up with psychotherapist prn, feels safe at home. Assessment & Plan (05/19/2024 12:11 PM EDT): - seems to be dealing well with previous trauma - f/u with therapist (Dr. Florian of [facility]) - feels safe at home and has crisis number Resolved Problems Problem Noted Date Diagnosed Date Resolved Date Elevated blood pressure reading 06/13/2024 03/26/2025 Assessment & Plan (06/13/2024 12:08 PM EDT): Unclear if related to pain. Check BP at next appointment. Encounters Date Type Department Care Team Description 05/03/2025 Orders Only [facility] [address] [place] [address] Shea King DO Polyarthralgia (Primary Dx); Positive ELISSA (antinuclear antibody) 04/21/2025 Telephone [facility] [address] [place] [phone] Elissa Hargrove MD Results 04/09/[address] [address] Elissa Hargrove MD No Show 04/08/[address] [address] Elissa Hargrove MD Chart Prep 04/02/2025 Results Follow-Up [address] [address] Elissa Hargrove MD T4, Free, Lipid Panel, Standard, TSH, Additional followed-up results: 10 03/31/2025 Telephone [facility] [address] [place] [phone] Elissa Hargrove MD Results 03/26/2025 3:40 PM EDT Office Visit [facility] [address] [place] [phone] Shea King DO Chronic bilateral low back pain with right-sided sciatica (Primary Dx); Polyarthralgia; Anxiety; Subcutaneous nodule 03/26/2025 Travel 03/03/2025 Refill [facility] [address] [place] [phone] Elissa Hargrove MD from Last 3 Months [...] Vitamin D 25-OH Total 29.6(L) >30 ng/mL [facility] Comment: Health Based Reference Values*< 20 ng/mL Sczjbtjrg28-45 ng/mL Insufficient> 30 ng/mL Sufficient*Karen OLIVAS. N [...] DO LAB BLOOD ORDERABLES Final R esult [facility] [address] [place] [phone] * Lyme Disease Ab with Reflex to Blot (IgG, IgM) (03/27/2025 10:54 AM EDT) Lyme Antibody Screen <0.90 index [facility] Comment:Index Interpretation ----- < 0.90 [...] when erythemamigrans is apparent.THIS TEST WAS PERFORMED AT:[facility] [place] [id number] TAPIA MD Lyme Blot TNP [facility] 03/27/2025 10:5 4 AM EDT 03/27/2025 12:58 PM EDT [facility] BLOOD ORDERABLES Final R esult Performing Organization Address [facility] Co de Phone Number [facility] [address] [place] [phone] * Sed Rate by Modified Soila (03/27/2025 10:54 AM EDT) Erythrocyte Sedimentation Rate 2 0 - 20 MM/HR [facility] Comment:Patients with polycy themia and many hemoglobin abnormalitiesmay have depressed sed rates whereas patients with anemiamay have elevated sed rates. Blood Venous blood specimen / Unknown 03/27/2025 10:54 AM EDT 03/27/2025 12:55 PM EDT Shea King LAB BLOOD ORDERABLES Final R esult Performing Organization Address [facility] Co de Phone Number [facility] [address] [place] [phone] * CBC (03/27/2025 10:54 AM EDT) White Blood Count 8.2 4.8 - 10.8 X10*3/uL [facility] Red Blood Count 5.21 4.20 - 5.50 X10*6/uL [facility] Hemoglobin 14.1 12.0 - 16.0 g/dl [facility] Hematocrit 43.4 37.0 - 47.0 % [facility] Mean Corpuscular Volume 83.3 80.0 - 98.0 fL [facility] Mean Corpuscular Hemoglobin 27.1 27.0 - 33.0 pg [facility] Mean Corpuscular HGB Conc 32.5 31.0 - 35.0 g/dl [facility] Red Cell Distribution Width 13.2 11.0 - 16.0 % [facility] Platelet Count 245 160 - 400 X10*3/uL [facility] Mean Platelet Volume 9.4 9.4 - 12.3 fL [facility] NRBC Pct Auto 0.0 0.0 - 0.2 /100WBC [facility] NRBC Abs Auto 0.000 0.0 - 0.012 X10*3/uL [facility] Blood Venous blood specimen / Unknown 03/27/2025 10:54 AM EDT 03/27/2025 12:55 PM EDT Shea King LAB BLOOD ORDERABLES Final R esult Performing Organization Address City/[facility]/ZIP Co de Phone Number [facility] [address] [place] [phone] * Rheumatoid Factor (03/27/2025 10:54 AM EDT) Rheumatoid Factor <13.0 <15.0 IU/mL [facility] Blood Venous blood specimen / Unknown 03/27/2025 10:54 AM EDT 03/27/2025 12:55 PM EDT [facility] BLOOD ORDERABLES Final R esult Performing Organization Address City/[facility] Co de Phone Number [facility] [address] [place] [phone] * C-reactive Protein (03/27/2025 10:54 AM EDT) C Reactive Protein 0.17 < or = 0.50 mg/dL [facility] Blood Venous blood specimen / Unknown 03/27/2025 10:54 AM EDT 03/27/2025 12:58 PM EDT us Shea King DO LAB BLOOD ORDERABLES Final R esult [facility] [address] [place] [phone] * (ABNORMAL) ELISSA Screen,IFA, with Reflex to Titer and Pattern (03/27/2025 10:54 AM EDT) Anti Nuclear Antibody Screen POSITIVE (A) NEGATIVE [facility] Comment:ELISSA IFA is a first l ine screen for detecting thepresence of up to approximately 150 autoantibodies invarious autoimmune diseases. A positive ELISSA IFA resultis suggestive of autoimmune disease and reflexes totiter and pattern. Further laboratory testing may beconsidered if clinically indicated.For additional information, please refer [email or web address](This link is being provided for informational/educational purposes only.) ELISSA Titer 1:80(A) titer [facility] Comment:A low level ELISSA tite r may be present in pre-clinicalautoimmune diseases and normal individuals. Reference Range <1:40 Negative 1:40-1:80 Low Antibody Level >1:80 Elevated Antibody Level ELISSA Pattern Nuclear, Speckled (A) [facility] Comment:Speckled pattern is associated with mixed connectivetissue disease (MCTD), systemic lupus erythematosus(SLE), Sjogren's syndrome, dermatomyositis, andsystemic sclerosis/polymyositis overlap.AC-2,4,5,29: SpeckledInternational Consensus on ELISSA Patterns(https://doi.org/10.1515/usmt-1649-2921)THIS TEST WAS PERFORMED AT:[facility] [place] [phone] TAPIA MD ELISSA TITER 2 (REF LAB) [facility] ELISSA Pattern 2 [facility] ELISSA TITER 3 [facility] ELISSA PATTERN 3 [facility] Blood Venous blood specimen / Unknown 03/27/2025 10:54 AM EDT 03/27/2025 12:58 PM EDT Shea King DO LAB BLOOD ORDERABLES Final R esult Performing Organization Address City/[facility]/ZIP Co de Phone Number [facility] [address] [place] [phone] * TSH (03/27/2025 10:54 AM EDT) Thyroid Stimulating Hormone 1.75 0.32 - 4.0 uIU/mL [facility] Comment:TSH 3rd Generation ( [facility]) Blood Venous blood specimen / Unknown 03/27/2025 10:54 AM EDT 03/27/2025 12:58 PM EDT Shea King LAB BLOOD ORDERABLES Final R esult Performing Organization Address [facility] Co de Phone Number [facility] [address] [place] [phone] * T4, Free (03/27/2025 10:54 AM EDT) Free T4 (Free Thyroxine) 0.94 0.71 - 1.85 ng/dL [facility] Blood Venous blood specimen / Unknown 03/27/2025 10:54 AM EDT 03/27/2025 12:58 PM EDT Shea King DO LAB BLOOD ORDERABLES Final R esult Performing Organization Address [facility] Co de Phone Number [facility] [address] [place] [phone] * Hemoglobin A1c (03/27/2025 10:54 AM EDT) Hemoglobin A1c 5.2 <6.0 % [facility] Comment:Hemoglobin A1C Refer ence Range Adults: 4.8 - 6.0 % Non diabetic: < 6.0 % Goal: < 7.0 %Additional Action Suggested: > 8.0 %Note: Hemoglobin A1c results are invalid for patients with abnormal amounts of HbF. Blood transfusions may impact the HbA1c concentration in the patient sample. Estimated Average Glucose 103 mg/dL [facility] Comment:eAG = Estimated ave rage glucose which is %A1C expressed asaverage glucose, using the formula of the T3G-SowzkyeVhaoswi Glucose study (ADAG), Diabetes Care, Vol.31,#8,Apr. 2007 Blood Venous blood specimen / Unknown 03/27/2025 10:54 AM EDT 03/27/2025 12:55 PM EDT Shea King LAB BLOOD ORDERABLES Final R esult Performing Organization Address [facility]/ZIP Co de Phone Number [facility] [address] [place] [phone] * (ABNORMAL) Hepatic Function Panel (03/27/2025 10:54 AM EDT) Bilirubin, Total 0.6 0.0 - 1.0 mg/dL [facility] Bilirubin, Direct 0.2 0.0 - 0.5 mg/dL [facility] Aspartate Amino Transferase 31 5 - 31 U/L [facility] Alanine Aminotransferase 35(H) 0 - 31 U/L [facility] Total Protein 7.1 6.5 - 8.0 g/dL [facility] Albumin Level 4.4 3.5 - 5.0 g/dL [facility] Alkaline Phosphatase 44 39 - 117 U/L [facility] Blood Venous blood specimen / Unknown 03/27/2025 10:54 AM EDT 03/27/2025 12:58 PM EDT Shea King DO LAB BLOOD ORDERABLES Final R esult Performing Organization Address [facility] Co de Phone Number [facility] [address] [place] [phone] * (ABNORMAL) Lipid Panel, Standard (03/27/2025 10:54 AM EDT) Triglycerides 197(H) <150 mg/dL [facility] Comment:Desirable Triglyceri de: less than 150 mg/dLBorderline High Triglyceride 150-199 mg/dLHigh Triglyceride: 200-499 mg/dLVery High Triglyceride: greater than or equal to 5OO mg/dL Cholesterol 209(H) <200 mg/dL [facility] Comment:Desirable Cholestero l: less than 200 mg/dLBorderline High Cholesterol: 200-239 mg/dLHigh Cholesterol: greater than 239 mg/dL LDL Cholesterol Calculated 114(H) <100 mg/dL [facility] Comment:Desirable LDL: less than 100 mg/dLNear Optimal/Above Optimal LDL: 110- 129 mg/dLBorderline High LDL: 130-159 mg/dLHigh LDL: 160-189 mg/dLVery High LDL: greater than or equal to 190 mg/dL HDL Cholesterol 56 >40 mg/dL [facility] Comment:Desirable HDL: great er than 40 mg/dL Note: This HDL assay may give artificially low results in patients with liver disease. Blood Venous blood specimen / Unknown 03/27/2025 10:54 AM EDT 03/27/2025 12:58 PM EDT us Shea King DO LAB BLOOD ORDERABLES Final R esult [facility] [address] [place] [phone] * (ABNORMAL) Basic Metabolic Panel (03/27/2025 10:54 AM EDT) Sodium 138 135 - 145 mmol/L [facility] Potassium 4.4 3.3 - 5.1 mmol/L [facility] Chloride 105 96 - 108 mmol/L [facility] Carbon Dioxide 26 22 - 29 mmol/L [facility] Anion Gap 11(L) 12 - 20 [facility] Urea Nitrogen (BUN) 8(L) 9 - 16 mg/dL [facility] Creatinine, Serum 0.76 0.5 - 1.4 mg/dL [facility] Estimated Glomerular Filt Rate >60 [facility] Comment:Chronic Kidney Disea se: Estimated GFR < 60 mL/min/1.40v0Agkjua Kidney Disease: Estimated GFR < 15 mL/min/1.73m2 Glucose 100 60 - 115 mg/dL [facility] Calcium 9.1 8.4 - 10.2 mg/dL [facility] Blood Venous blood specimen / Unknown 03/27/2025 10:54 AM EDT 03/27/2025 12:58 PM EDT Shea King DO LAB BLOOD ORDERABLES Final R esult [facility] [address] [place] [phone] from Last [address] [address] C3 [facility] STAND ADULT Care Teams Cut Out Worker Relationship Specialty Start Date End Date Elissa Hargrove MD [address] [place] [phone] PCP - General Internal Medicine 05/19/24
--- OUTSIDE RECORDS SUMMARY | 2025-05-07 18:44 | XMS_ITS | Encounter Summary ---
Author Organization [employer] Address [address] [facility] [address] [place] [address] Care Team Providers Care Balloon Artist Name Role Phone Elissa Hargrove MD Primary Care Provider + Reason for Visit * Reason Onset Date Comments Med Refill 12/25/2024 Encounter Details Date Type Department Care Team ([facility] st Contact Info) Description 12/25/2024 Refill [facility] [address] [place] [address] [phone] Name, MD Ernie [address] [place] [address] Moderate persistent asthma without complication Social History [...] complication documented in this encounter Care Teams Balloon Artist Relationship Specialty Start Date End Date Elissa Hargrove MD [address] [place] [phone] PCP - General Internal Medicine 05/19/24 documented as of this encounter
== END 2025-05-07 18:37 | disposition home or self-care (01) ==
LOC: HO.MRI 18:36
PROVIDERS: PCP Internal Medicine; Visit Provider Family Medicine
DX: G89.29 Other chronic pain (principal); M54.41 Lumbago with sciatica, right side
CPT/HCPCS: 72148

== ENCOUNTER → 2025-05-07 18:37 | Outpatient (BNV) | payer MEDICAID, SELFPAY | PROVIDERS: PCP Internal Medicine; Visit Provider Radiology Diagnostic Radiology | DX: M51.360 Other intervertebral disc degeneration, lumbar region with discogenic back pain only (principal); M48.061 Spinal stenosis, lumbar region without neurogenic claudication | CPT/HCPCS: 72148 ==

== ENCOUNTER 2025-05-26 08:25 | Outpatient (REF) | payer MEDICAID, SELFPAY ==
--- NOTE | 2025-05-26 08:28 | EMG_ITS ---
Chief complaint: Pain and weakness bilaterally right worse than left Reason for referral: Worsening LBP bilateral lower extremity numbness Referred by:?Shea King Procedure done: Bilateral lower extremities NCS/EMG Bilateral tibial and peroneal motor studies were performed bilateral superficial peroneal and sural sensory studies were performed bilateral median and lateral mixed plantars sensory studies were performed tibial H reflexes were obtained and EMG needle examination was performed. Bilateral tibial distal latencies were prolonged with significant reduction of amplitudes and relatively intact conduction velocities. Bilateral superficial peroneal amplitude were decrease with intact conduction velocities. Bilateral median and lateral mixed plantar amplitudes were minimal with slow conduction velocities. Impression: 1. 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 Mild bilateral axonal superficial peroneal neuropathy 3. Bilateral tibial motor neuropathy with intact peroneal responses, which may happened with proximal root level lesion. Though no obvious acute abnormality was noted on EMG study, if not performed before, MRI of lumbosacral spine is recommended to rule out radiculopathy MTDD
--- OUTSIDE RECORDS SUMMARY | 2025-05-26 09:54 | XMS_ITS | Clinical Summary ---
Author Organization [employer] Address [address] [place] [address] 7[address] [place] [address] Care Team Providers Care Clinical Ob Name Role Phone Reba Hargrove MD Primary Care Provider + Allergies [...] for muscle spasms. 60 tablet 1 5 Active acetaminophen (Tylenol 8 Hour) 650 MG [...] records from previous PCP and MRI from [facility] - advised to come to [facility] acupuncture - order labs and f/u with [...] Overview (05/20/2024): Sees therapist Chiqui from the [facility] ph# [phone] Assessment & Plan (07/03/2024 11:25 AM EDT): Seems to be dealing well with situation of kids, has good support from psychotherapist. Follow up with psychotherapist prn, feels safe at home. Assessment & Plan (05/19/2024 12:11 PM EDT): - seems to be dealing well with previous trauma - f/u with therapist (Dr. Florian of [facility]) - feels safe at home and has crisis number Resolved Problems Problem Noted Date Diagnosed Date Resolved Date Elevated blood pressure reading 06/13/2024 03/26/2025 Assessment & Plan (06/13/2024 12:08 PM EDT): Unclear if related to pain. Check BP at next appointment. Encounters Date Type Department Care Team Description 05/18/2025 Telephone [facility] [address] [place] [phone] Nhi Pichardo, MELBA Results 05/03/2025 Orders Only [address] [address] Shea King DO Polyarthralgia (Primary Dx); Positive REBA (antinuclear antibody) 04/21/[address] [address] Reba Hargrove MD Results 04/09/[address] [address] Reba Hargrove MD No Show 04/08/[address] [address] Reba Hargrove MD Chart Prep 04/02/2025 Results Follow-Up [address] [address] Reba Hargrove MD T4, Free, Lipid Panel, Standard, TSH, Additional followed-up results: 10 03/31/[address] [address] Reba Hargrove MD Results 03/26/2025 3:40 PM EDT Office Visit [facility] [address] [place] [address] Shea King DO Chronic bilateral low back pain with right-sided sciatica (Primary Dx); Polyarthralgia; Anxiety; Subcutaneous nodule 03/26/2025 Travel 03/03/2025 Refill [facility] [address] [place] [phone] Reba Hargrove MD from Last 3 Months Immunizations [...] Mammogram 2022 COVID-19 Vaccine (1 - season) 2025 Influenza Vaccine (#1) 2025 , 08/15/2021, 07/12/2018, [...] Procedure Name Priority Date/Time Associated Diagnosis Comments MR LUMBAR SPINE WO CONTRAST Urgent 05/07/2025 8:01 PM EDT Chronic bilateral low back pain with right-sided sciatica C-REACTIVE PROTEIN Routine 03/27/2025 10 :54 AM EDT Polyarthralgia SED RATE BY MODIFIED WESTERGREN Routine 03/27/2025 10:54 AM EDT Polyarthralgia RHEUMATOID FACTOR Routine 03/27/2025 10: 54 AM EDT Polyarthralgia LYME DISEASE AB W/REFL TO BLOT (IGG, IGM) Routine 03/27/2025 10:54 AM EDT Polyarthralgia REBA SCREEN, IFA, W/REFL TITER AND PATTERN Routine [...] Polyarthralgia from Last 3 Months Results * MR Lumbar Spine w/o Contrast (05/07/2025 8:01 PM EDT) Anatomical Region Laterality Modality Spine, L-spine Magnetic Resonan ce 05/07/2025 8:01 PM EDT Narrative 05/07/2025 8:01 PM EDT [place] [address] Magnetic Resonance Report Signed Patient: Branden Tavera MR#: [id number] : 1980 Acct:[id number] Age/Sex: 44 / F ADM Date: 05/07/25 Loc: HO.MRI Attending Dr: Shea King DO Ordering Physician: Shea King DO Date of Service: 05/07/25 Procedure(s): MR lumbar spine wo con Accession Number(s): [id number] cc: Reba Hargrove MD; Shea King DO CLINICAL HISTORY: worsening LBP with R leg pain, paresthesias and weakness MR lumbar spine without Gadolinium Comparison: CR/SR - XR LUMBAR SPINE 4V MIN - 05/19/24 12:27 EDT Findings: 5 lumbar type vertebral bodies are present by plain film. 2 mm of retrolisthesis of L2 on L3. No acute fracture or pathologic bone lesion. Mild reactive signal within the endplates adjacent to the L4-L5 and L5-S1 intervertebral discs. Cauda equina and conus medullaris within normal limits. Paraspinous musculature intact. Ill-defined high T1/T2 signal intensity focus within the right paraspinous musculature measuring 40 mm at the L1 level. L1-L2: No significant canal nor foraminal stenosis. L2-L3:Mild bilateral facet and ligamentum flavum hypertrophy. Mild epidural lipomatosis. Mild diffuse disc bulge. Mild canal stenosis. Mild bilateral foraminal stenosis. L3-L4:Mild facet and ligamentum flavum hypertrophy. Mild epidural lipomatosis. Mild canal stenosis. Mild bilateral foraminal stenosis. L4-L5: Mild disc desiccation and diffuse disc bulge. Mild facet and ligamentum flavum hypertrophy. Mild epidural lipomatosis. Mild canal stenosis. Mild right and moderate left foraminal stenosis. L5-S1:Mild disc desiccation and diffuse disc bulge. Mild bilateral facet hypertrophy. Mild canal stenosis. Mild bilateral foraminal stenosis. IMPRESSION: 1. 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 Initial further assessment with postcontrast enhanced imaging is recommended. 2. Multilevel degenerative disc and facet disease, as well as ligamentum flavum hypertrophy. 3. Mild multilevel canal stenoses. 4. Multilevel mild and moderate foraminal stenoses. This document has been electronically signed by: Mitch Mcdaniel MD on 05/07/2025 20:01:09 Dictated By: Mitch Mcdaniel MD Signed By: <Electronically signed by Mitch Mcdaniel MD in OV> 05/07/252000 DD/ 00 TD/TT: 05/07/252000 Experimental Aircraft Mechanic: Procedure Note Donotuseinterpreter, Image - 05/07/2025 [place] [address] Magnetic Resonance Report Signed Patient: Branden Tavera#: [id number] : 1980Acct:[id number] Age/Sex: 44 / FADM Date: 05/07/25 Loc: HO.MRI Attending Dr: Shea King DO Ordering Physician: Shea King DO Date of Service: 05/07/25 Procedure(s): MR lumbar spine wo con Accession Number(s): [id number] cc: Reba Hargrove MD; Shea King DO CLINICAL HISTORY: worsening LBP with R leg pain, paresthesias and weakness MR lumbar spine without Gadolinium Comparison: CR/SR - XR LUMBAR SPINE 4V MIN - 05/19/24 12:27 EDT Findings: 5 lumbar type vertebral bodies are present by plain film. 2 mm of retrolisthesis of L2 on L3. No acute fracture or pathologic bone lesion. Mild reactive signal within the endplates adjacent to the L4-L5 and L5-S1 intervertebral discs. Cauda equina and conus medullaris within normal limits. Paraspinous musculature intact. Ill-defined high T1/T2 signal intensity focus within the right paraspinous musculature measuring 40 mm at the L1 level. L1-L2: No significant canal nor foraminal stenosis. L2-L3:Mild bilateral facet and ligamentum flavum hypertrophy. Mild epidural lipomatosis. Mild diffuse disc bulge. Mild canal stenosis. Mild bilateral foraminal stenosis. L3-L4:Mild facet and ligamentum flavum hypertrophy. Mild epidural lipomatosis. Mild canal stenosis. Mild bilateral foraminal stenosis. L4-L5: Mild disc desiccation and diffuse disc bulge. Mild facet and ligamentum flavum hypertrophy. Mild epidural lipomatosis. Mild canal stenosis. Mild right and moderate left foraminal stenosis. L5-S1:Mild disc desiccation and diffuse disc bulge. Mild bilateral facet hypertrophy. Mild canal stenosis. Mild bilateral foraminal stenosis. IMPRESSION: 1. 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 Initial further assessment with postcontrast enhanced imaging is recommended. 2. Multilevel degenerative disc and facet disease, as well as ligamentum flavum hypertrophy. 3. Mild multilevel canal stenoses. 4. Multilevel mild and moderate foraminal stenoses. This document has been electronically signed by: Mitch Mcdaniel MD on 05/07/2025 20:01:09 Dictated By: Mitch Mcdaniel MD Signed By: <Electronically signed by Mitch Mcdaniel MD in OV> 05/07/252000 DD/ 00 TD/TT: 05/07/252000 Experimental Aircraft Mechanic: Shea King DO IMG MRI PROCEDURES Final Res ult * (ABNORMAL) Vitamin D, 25-Hydroxy, Total, Immunoassay (03/27/2025 10:54 AM EDT) Vitamin D 25-OH Total 29.6(L) >30 ng/mL [facility] Comment: Health Based Reference Values*< 20 ng/mL [id number] ng/mL Insufficient> 30 ng/mL Sufficient*Karen OLIVAS. N [...] DO LAB BLOOD ORDERABLES Final R esult [facility] [address] [place] [address] [phone] * Lyme Disease Ab with Reflex to Blot (IgG, IgM) (03/27/2025 10:54 AM EDT) Lyme Antibody Screen <0.90 index [facility] Comment:Index Interpretation ----- < 0.90 [...] when erythemamigrans is apparent.THIS TEST WAS PERFORMED AT:[facility] [place] [id number] TAPIA MD Lyme Blot TNP [facility] 03/27/2025 10:5 4 AM EDT 03/27/2025 12:58 PM EDT us Shea Christine DO LAB BLOOD ORDERABLES Final R esult Performing Organization Address City/[facility]/ZIP Co de Phone Number [facility] [address] [place] [address] [phone] * Sed Rate by Modified Mckinleyergren (03/27/2025 10:54 AM EDT) Pathologist [facility] Erythrocyte Sedimentation Rate 2 0 - 20 MM/HR [facility] Comment:Patients with polycy themia and many hemoglobin abnormalitiesmay have depressed sed rates whereas patients with anemiamay have elevated sed rates. Blood Venous blood specimen / Unknown 03/27/2025 10:54 AM EDT 03/27/2025 12:55 PM EDT us Shea Christine DO LAB BLOOD ORDERABLES Final R esult Performing Organization Address City/[facility]/ZIP Co de Phone Number [facility] [address] [place] [address] [phone] * CBC (03/27/2025 10:54 AM EDT) Pathologist [facility] White Blood Count 8.2 4.8 - 10.8 X10*3/uL [facility] Red Blood Count 5.21 4.20 - 5.50 X10*6/uL [facility] Hemoglobin 14.1 12.0 - 16.0 g/dl [facility] Hematocrit 43.4 37.0 - 47.0 % [facility] Mean Corpuscular Volume 83.3 80.0 - 98.0 fL [facility] Mean Corpuscular Hemoglobin 27.1 27.0 - 33.0 pg [facility] Mean Corpuscular HGB Conc 32.5 31.0 - 35.0 g/dl [facility] Red Cell Distribution Width 13.2 11.0 - 16.0 % [facility] Platelet Count 245 160 - 400 X10*3/uL [facility] Mean Platelet Volume 9.4 9.4 - 12.3 fL [facility] NRBC Pct Auto 0.0 0.0 - 0.2 /100WBC [facility] NRBC Abs Auto 0.000 0.0 - 0.012 X10*3/uL [facility] Blood Venous blood specimen / Unknown 03/27/2025 10:54 AM EDT 03/27/2025 12:55 PM EDT Shea King LAB BLOOD ORDERABLES Final R esult Performing Organization Address City/[facility]/ZIP Co de Phone Number [facility] [address] [place] [phone] * Rheumatoid Factor (03/27/2025 10:54 AM EDT) Rheumatoid Factor <13.0 <15.0 IU/mL [facility] Blood Venous blood specimen / Unknown 03/27/2025 10:54 AM EDT 03/27/2025 12:55 PM EDT Shea King LAB BLOOD ORDERABLES Final R esult Performing Organization Address [facility] de Phone Number [facility] [address] [place] [phone] * C-reactive Protein (03/27/2025 10:54 AM EDT) C Reactive Protein 0.17 < or = 0.50 mg/dL [facility] Blood Venous blood specimen / Unknown 03/27/2025 10:54 AM EDT 03/27/2025 12:58 PM EDT Shea Christine LAB BLOOD ORDERABLES Final R esult Performing Organization Address [facility] Co de Phone Number [facility] [address] [place] [phone] * (ABNORMAL) REBA Screen,IFA, with Reflex to Titer and Pattern (03/27/2025 10:54 AM EDT) Anti Nuclear Antibody Screen POSITIVE (A) NEGATIVE [facility] Comment:REBA IFA is a first l ine screen for detecting thepresence of up to approximately 150 autoantibodies invarious autoimmune diseases. A positive REBA IFA resultis suggestive of autoimmune disease and reflexes totiter and pattern. Further laboratory testing may beconsidered if clinically indicated.For additional information, please refer tohttp://education.[employer]/faq/LLZ684(This link is being provided for informational/educational purposes only.) REBA Titer 1:80(A) titer [facility] Comment:A low level REBA tite r may be present in pre-clinicalautoimmune diseases and normal individuals. Reference Range <1:40 Negative 1:40-1:80 Low Antibody Level >1:80 Elevated Antibody Level REBA Pattern Nuclear, Speckled (A) [facility] Comment:Speckled pattern is associated with mixed connectivetissue disease (MCTD), systemic lupus erythematosus(SLE), Sjogren's syndrome, dermatomyositis, andsystemic sclerosis/polymyositis overlap.AC-2,4,5,29: SpeckledInternational Consensus on REBA Patterns(https://doi.org/10.1515/mphf-7697-8435)THIS TEST WAS PERFORMED AT:[employer] [place] [id number] TAPIA MD REBA TITER 2 (REF LAB) [facility] REBA Pattern 2 [facility] REBA TITER 3 [facility] REBA PATTERN 3 [facility] Blood Venous blood specimen / Unknown 03/27/2025 10:54 AM EDT 03/27/2025 12:58 PM EDT us Shea King DO LAB BLOOD ORDERABLES Final R esult [facility] [address] [place] [phone] [phone] * TSH (03/27/2025 10:54 AM EDT) Thyroid Stimulating Hormone 1.75 0.32 - 4.0 uIU/mL [facility] Comment:TSH 3rd Generation ( [facility]) Blood Venous blood specimen / Unknown 03/27/2025 10:54 AM EDT 03/27/2025 12:58 PM EDT Shea King LAB BLOOD ORDERABLES Final R esult Performing Organization Address City/[facility]/ZIP Co de Phone Number [facility] [address] [place] [phone] * T4, Free (03/27/2025 10:54 AM EDT) Free T4 (Free Thyroxine) 0.94 0.71 - 1.85 ng/dL [facility] Blood Venous blood specimen / Unknown 03/27/2025 10:54 AM EDT 03/27/2025 12:58 PM EDT Shea Parkmarya LAB BLOOD ORDERABLES Final R esult Performing Organization Address [facility] de Phone Number [facility] [address] [place] [phone] * Hemoglobin A1c (03/27/2025 10:54 AM EDT) Hemoglobin A1c 5.2 <6.0 % [facility] Comment:Hemoglobin A1C Refer ence Range Adults: 4.8 - 6.0 % Non diabetic: < 6.0 % Goal: < 7.0 %Additional Action Suggested: > 8.0 %Note: Hemoglobin A1c results are invalid for patients with abnormal amounts of HbF. Blood transfusions may impact the HbA1c concentration in the patient sample. Estimated Average Glucose 103 mg/dL [facility] Comment:eAG = Estimated ave rage glucose which is %A1C expressed asaverage glucose, using the formula of the X3A-AzqdtmpOjiupmn Glucose study (ADAG), Diabetes Care, Vol.31,#8,2007 Blood Venous blood specimen / Unknown 03/27/2025 10:54 AM EDT 03/27/2025 12:55 PM EDT Shea Christine DO LAB BLOOD ORDERABLES Final R esult Performing Organization Address [facility] Co de Phone Number [facility] [address] [place] [address] [phone] * (ABNORMAL) Hepatic Function Panel (03/27/2025 10:54 AM EDT) Bilirubin, Total 0.6 0.0 - 1.0 mg/dL [facility] Bilirubin, Direct 0.2 0.0 - 0.5 mg/dL [facility] Aspartate Amino Transferase 31 5 - 31 U/L [facility] Alanine Aminotransferase 35(H) 0 - 31 U/L [facility] Total Protein 7.1 6.5 - 8.0 g/dL [facility] Albumin Level 4.4 3.5 - 5.0 g/dL [facility] Alkaline Phosphatase 44 39 - 117 U/L [facility] Blood Venous blood specimen / Unknown 03/27/2025 10:54 AM EDT 03/27/2025 12:58 PM EDT Shea King DO LAB BLOOD ORDERABLES Final R esult Performing Organization Address [facility] Co de Phone Number [facility] [address] [place] [phone] * (ABNORMAL) Lipid Panel, Standard (03/27/2025 10:54 AM EDT) Triglycerides 197(H) <150 mg/dL [facility] Comment:Desirable Triglyceri de: less than 150 mg/dLBorderline High Triglyceride 150-199 mg/dLHigh Triglyceride: 200-499 mg/dLVery High Triglyceride: greater than or equal to 5OO mg/dL Cholesterol 209(H) <200 mg/dL [facility] Comment:Desirable Cholestero l: less than 200 mg/dLBorderline High Cholesterol: 200-239 mg/dLHigh Cholesterol: greater than 239 mg/dL LDL Cholesterol Calculated 114(H) <100 mg/dL [facility] Comment:Desirable LDL: less than 100 mg/dLNear Optimal/Above Optimal LDL: 110- 129 mg/dLBorderline High LDL: 130-159 mg/dLHigh LDL: 160-189 mg/dLVery High LDL: greater than or equal to 190 mg/dL HDL Cholesterol 56 >40 mg/dL [facility] Comment:Desirable HDL: great er than 40 mg/dL Note: This HDL assay may give artificially low results in patients with liver disease. Blood Venous blood specimen / Unknown 03/27/2025 10:54 AM EDT 03/27/2025 12:58 PM EDT us Shea King DO LAB BLOOD ORDERABLES Final R esult [facility] [address] [place] [phone] * (ABNORMAL) Basic Metabolic Panel (03/27/2025 10:54 AM EDT) Sodium 138 135 - 145 mmol/L [facility] Potassium 4.4 3.3 - 5.1 mmol/L [facility] Chloride 105 96 - 108 mmol/L [facility] Carbon Dioxide 26 22 - 29 mmol/L [facility] Anion Gap 11(L) 12 - 20 [facility] Urea Nitrogen (BUN) 8(L) 9 - 16 mg/dL [facility] Creatinine, Serum 0.76 0.5 - 1.4 mg/dL [facility] Estimated Glomerular Filt Rate >60 [facility] Comment:Chronic Kidney Disea se: Estimated GFR < 60 mL/min/1.67e6Tpkjkz Kidney Disease: Estimated GFR < 15 mL/min/1.73m2 Glucose 100 60 - 115 mg/dL [facility] Calcium 9.1 8.4 - 10.2 mg/dL [facility] Blood Venous blood specimen / Unknown 03/27/2025 10:54 AM EDT 03/27/2025 12:58 PM EDT Shea King DO LAB BLOOD ORDERABLES Final R esult [facility] [address] [place] [phone] from Last [address] [place] [address] [place] [address] C3 [facility] MEDICAID STAND ADULT Care Teams Clinical Ob Relationship Specialty Start Date End Date Reba Hargrove MD [address] [place] [phone] PCP - General Internal Medicine 05/19/24
--- OUTSIDE RECORDS SUMMARY | 2025-05-26 09:55 | XMS_ITS | Encounter Summary ---
Author Organization [employer] Address [address] [place] [address] 7t [place] [address] Care Team Providers Care Oncology Rep Specialist Name Role Phone Elissa Hargrove MD Primary Care Provider + Reason for Visit * Reason Comments Med Refill Encounter Details Date Type Department Care Team ([facility] st Contact Info) Description 11/19/[address] [facility] [address] [place] [address] [phone] Name, MD Ernie [address] [place] [address] [phone] Social History Tobacco Use Types Packs/Day Years [...] on filedocumented in this encounter Care Teams Oncology Rep Specialist Relationship Specialty Start Date End Date Elissa Hargrove MD [address] [place] [phone] PCP - General Internal Medicine 05/19/24 documented as of this encounter
--- OUTSIDE RECORDS SUMMARY | 2025-05-26 09:55 | XMS_ITS | Encounter Summary ---
Author Organization [employer] Address [address] [place] [address] 7t [place] [address] Care Team Providers Care Nailhead Operator Name Role Phone Elissa Hargrove MD Primary Care Provider + Encounter Details Date Type Department Care Team (Late st Contact Info) Description 01/02/2024 Telephone [employer] [facility] [address] [place], [place] [phone] Cyndee Villa [place] Social History Tobacco Use [...] on filedocumented in this encounter Care Teams Nailhead Operator Relationship Specialty Start Date End Date Elissa Hargrove MD [address] [place], [place] [phone] PCP - General Internal Medicine 05/19/24 documented as of this encounter
--- OUTSIDE RECORDS SUMMARY | 2025-05-26 09:55 | XMS_ITS | Encounter Summary ---
Author Organization [employer] Address [address] [facility] [address]t [place] [address] Care Team Providers Care Portainer Operator Name Role Phone Elissa Hargrove MD Primary Care Provider + Reason for Visit * Reason Comments Med Refill Encounter Details Date Type Department Care Team ([facility] st Contact Info) Description 01/27/2025 Refill [facility] [address] [place], [place] [phone] Elissa Hargrove MD [address] [place], [place] [phone] Social History Tobacco Use Types Packs/Day Years [...] t he electric, gas, oil or water [employer] threatened to shut off services in your [...] on filedocumented in this encounter Care Teams Portainer Operator Relationship Specialty Start Date End Date Elissa Hargrove MD [address] [place] [phone] PCP - General Internal Medicine 05/19/24 documented as of this encounter
--- OUTSIDE RECORDS SUMMARY | 2025-05-26 09:55 | XMS_ITS | Encounter Summary ---
Author Organization [email or web address] Address [address] [facility] 7t [place] [address] Care Team Providers Care Consultant Teacher Name Role Phone Elissa Hargrove MD Primary Care Provider + Reason for Visit * Reason Onset Date Comments Med Refill 12/25/2024 Encounter Details Date Type Department Care Team ([facility] st Contact Info) Description 12/25/2024 Refill [facility] [address] [place] [address] [phone] Name, MD Ernie [address] [place] [address] Moderate persistent asthma without complication Social History [...] complication documented in this encounter Care Teams Consultant Teacher Relationship Specialty Start Date End Date Elissa Hargrove MD [address] [place] [phone] PCP - General Internal Medicine 05/19/24 documented as of this encounter
== END 2025-05-26 08:26 | disposition home or self-care (01) ==
LOC: HO.NEURO 08:25
PROVIDERS: PCP Internal Medicine; Visit Provider Family Medicine
DX: M54.41 Lumbago with sciatica, right side (principal); G89.29 Other chronic pain
CPT/HCPCS: 95886; 95913

== ENCOUNTER → 2025-05-26 08:28 | Outpatient (BNV) | payer MEDICAID, SELFPAY | PROVIDERS: PCP Internal Medicine; Visit Provider Psychiatry & Neurology Neurology | DX: G62.89 Other specified polyneuropathies (principal) | CPT/HCPCS: 95886; 95913 ==

== ENCOUNTER 2025-06-08 15:11 | Outpatient (REF) | payer MEDICAID, SELFPAY ==
--- NOTE | ~2025-06-08 | US_ITS ---
Examination: US Extremity Nonvas Limited Rt HISTORY: Localized swelling, mass, lump, anterior right lower leg TECHNIQUE: Grayscale and color Doppler imaging with spectral interrogation of the vascularity was performed Prior: None FINDINGS: In the area of palpable abnormality, there is no mass or loculated fluid. There is a vascular structure that demonstrates biphasic arterial waveforms appears to be branches from the anterior tibial artery. No other abnormalities are seen. US/US Extremity Nonvas Limited RT IMPRESSION: In the region where the patient notes a palpable lump, there is a vessel branching off the anterior tibial artery. Electronically signed by: Reymundo Woo MD 06/08/2025 04:40 PM EDT
--- OUTSIDE RECORDS SUMMARY | 2025-06-08 17:17 | XMS_ITS | Encounter Summary ---
Author Organization [employer] Address [address] [place] [address] [address] [place] [address] Care Team Providers Care Punch Operator Name Role Phone Elissa Hargrove MD Primary Care Provider + Encounter Details Date Type Department Care Team (Late st Contact Info) Description 01/02/2024 Telephone [employer] [facility] [address] [place], [place] [phone] Cyndee Villa [place] Social History Tobacco Use [...] on filedocumented in this encounter Care Teams Punch Operator Relationship Specialty Start Date End Date Elissa Hargrove MD [address] [place], [place] [phone] PCP - General Internal Medicine 05/19/24 documented as of this encounter
--- OUTSIDE RECORDS SUMMARY | 2025-06-08 17:17 | XMS_ITS | Encounter Summary ---
Author Organization [employer] Address 75 [facility] 7t [place] [address] Care Team Providers Care Delivery Man Name Role Phone Elissa Hargrove MD Primary Care Provider + Encounter Details Date Type Department Care Team (Late st Contact Info) Description 06/08/2025 Orders Only [facility] MEDICINE [address] [place], [place] [phone] Shea King DO [address] [place], [place] [phone] Social History Tobacco Use Types Packs/Day Years [...] on file documented as of this encounter Procedures Procedure Name Priority Date/Time Associated Diagnosis Comments US EXTREMITY NON-VASCULAR RIGHT LIMITED Routine 06/08/2025 3:30 PM EDT documented in this encounter Results * US EXTREMITY NON-VASCULAR RIGHT LIMITED (06/08/2025 3:30 PM EDT) Anatomical Region Laterality Modality Ultrasound 06/08/2025 3:30 PM EDT Narrative 06/08/2025 4:43 PM EDT [place] [address] Ultrasound Report Signed Patient: Branden Tavera MR#: [id number] : 1980 Acct:[id number] Age/Sex: 44 / F ADM Date: 06/08/25 Loc: HO.US Attending Dr: Shea King DO Ordering Physician: Shea King DO Date of Service: 06/08/25 Procedure(s): US Extremity Nonvas Limited RT Accession Number(s): [id number] cc: Elissa Hargrove MD; Shea King DO Reason for Exam: LOCALIZED SWELLING,MASS AND LUMP Examination: US Extremity Nonvas Limited Rt HISTORY: Localized swelling, mass, lump, anterior right lower leg TECHNIQUE: Grayscale and color Doppler imaging with spectral interrogation of the vascularity was performed Prior: None FINDINGS: In the area of palpable abnormality, there is no mass or loculated fluid. There is a vascular structure that demonstrates biphasic arterial waveforms appears to be branches from the anterior tibial artery. No other abnormalities are seen. US/US Extremity Nonvas Limited RT IMPRESSION: In the region where the patient notes a palpable lump, there is a vessel branching off the anterior tibial artery. Electronically signed by: Reymundo Woo MD 06/08/2025 04:40 PM EDT RP Dictated By: Reymundo Woo MD Signed By: <Electronically signed by Reymundo Woo MD in OV> 06/08/25 1640 DD/ 1530 TD/TT: 06/08/25 1537 Digital Product Specialist: Procedure Note Donotuseinterpreter, Image - 06/08/2025 [place] [address] Ultrasound Report Signed Patient: Branden Tavera#: [id number] : 1980Acct:[id number] Age/Sex: 44 / FADM Date: 06/08/25 Loc: HO.US Attending Dr: Shea King DO Ordering Physician: Shea King DO Date of Service: 06/08/25 Procedure(s): US Extremity Nonvas Limited RT Accession Number(s): [id number] cc: Elissa Hargrove MD; Shea King DO Reason for Exam: LOCALIZED SWELLING,MASS AND LUMP Examination: US Extremity Nonvas Limited Rt HISTORY: Localized swelling, mass, lump, anterior right lower leg TECHNIQUE: Grayscale and color Doppler imaging with spectral interrogation of the vascularity was performed Prior: None FINDINGS: In the area of palpable abnormality, there is no mass or loculated fluid. There is a vascular structure that demonstrates biphasic arterial waveforms appears to be branches from the anterior tibial artery. No other abnormalities are seen. US/US Extremity Nonvas Limited RT IMPRESSION: In the region where the patient notes a palpable lump, there is a vessel branching off the anterior tibial artery. Electronically signed by: Reymundo Woo MD 06/08/2025 04:40 PM EDT RP Dictated By: Reymundo Woo MD Signed By: <Electronically signed by Reymundo Woo MD in OV> 06/08/25 1640 DD/ 1530 TD/TT: 06/08/25 1537 Digital Product Specialist: us Shea King DO IMG US PROCEDURES Final Resu lt documented in this encounter Visit Diagnoses Not on filedocumented in this encounter Care Teams Delivery Man Relationship Specialty Start Date End Date Elissa Hargrove MD [address] [place] [phone] PCP - General Internal Medicine 05/19/24 documented as of this encounter
--- OUTSIDE RECORDS SUMMARY | 2025-06-08 17:17 | XMS_ITS | Encounter Summary ---
Author Organization [employer] Address 75 [facility] 7t [place] [address] Care Team Providers Care Uncrater Name Role Phone Elissa Hargrove MD Primary Care Provider + Reason for Visit * Reason Comments Med Refill Encounter Details Date Type Department Care Team ([facility] st Contact Info) Description 01/27/2025 Refill [facility] MEDICINE 230 [place], [place] [phone] Elissa Hargrove MD 230 [place], [place] [phone] Social History Tobacco Use Types Packs/Day Years [...] t he electric, gas, oil or water Whereoscope threatened to shut off services in your [...] on filedocumented in this encounter Care Teams Uncrater Relationship Specialty Start Date End Date Elissa Hargrove MD [address] [place] [phone] PCP - General Internal Medicine 05/19/24 documented as of this encounter
--- OUTSIDE RECORDS SUMMARY | 2025-06-08 17:17 | XMS_ITS | Encounter Summary ---
Author Organization [employer] Address [address] [place] [address] 7t [place] [address] Care Team Providers Care Antenna Machine Operator Name Role Phone Elissa Hargrove MD Primary Care Provider + Reason for Visit * Reason Comments Med Refill Encounter Details Date Type Department Care Team ([facility] st Contact Info) Description 11/19/2023 Refill [facility] [address] [place] [address] [phone] Name, MD Ernie [address] [place] [address] [phone] Social History Tobacco Use Types Packs/Day Years [...] on filedocumented in this encounter Care Teams Antenna Machine Operator Relationship Specialty Start Date End Date Elissa Hargrove MD [address] [place] [phone] PCP - General Internal Medicine 05/19/24 documented as of this encounter
--- OUTSIDE RECORDS SUMMARY | 2025-06-08 17:17 | XMS_ITS | Clinical Summary ---
Author Organization [employer] Address [address] [place] [address] 7t [place] [address] Care Team Providers Care Feed Manager Name Role Phone Reba Hargrove MD Primary [...] activity. Check home BP BIW and prn CP/PAEG/MCLEAN Non smoking patient. Carpal tunnel syndrome of [...] records from previous PCP and MRI from [facility] - advised to come to [facility] acupuncture - order labs and [...] Overview (05/20/2024): Sees therapist Chiqui from the [facility] ph# [phone] Assessment & Plan (07/03/2024 11:25 AM EDT): Seems to be dealing well with situation of kids, has good support from psychotherapist. Follow up with psychotherapist prn, feels safe at home. Assessment & Plan (05/19/2024 12:11 PM EDT): - seems to be dealing well with previous trauma - f/u with therapist (Dr. Florian of [facility]) - feels safe at home and has crisis number Resolved Problems Problem Noted Date Diagnosed Date Resolved Date Elevated blood pressure reading 06/13/2024 03/26/2025 Assessment & Plan (06/13/2024 12:08 PM EDT): Unclear if related to pain. Check BP at next appointment. Encounters Date Type Department Care Team Description 06/08/2025 Orders Only [facility]ICINE [address] [place] [address] Shea King DO 05/18/[address] [address] Nhi Pichardo RN Results 05/03/2025 Orders Only [address] [address] Shea King DO Polyarthralgia (Primary Dx); Positive REBA (antinuclear antibody) 04/21/[address] [address] Reba Hargrove MD Results 04/09/[address] [address] Reba Hargrove MD No Show 04/08/[address] [address] Reba Hargrove MD Chart Prep 04/02/2025 Results Follow-Up [address] [address] Reba Hargrove MD T4, Free, Lipid Panel, Standard, TSH, Additional followed-up results: 10 03/31/[address] [address] Reba Hargrove MD Results 03/26/2025 3:40 PM EDT Office Visit [facility] [address] [place] [phone] Shea King DO Chronic bilateral low back pain with right-sided sciatica (Primary Dx); Polyarthralgia; Anxiety; Subcutaneous nodule 03/26/2025 Travel from Last 3 Months Immunizations Immunization Administration [...] RIGHT LIMITED Routine 06/08/2025 3:30 PM EDT MR LUMBAR SPINE WO CONTRAST Urgent 05/07/2025 [...] Polyarthralgia from Last 3 Months Results * US EXTREMITY NON-VASCULAR RIGHT LIMITED (06/08/2025 3:30 PM EDT) Anatomical Region Laterality Modality Ultrasound 06/08/2025 3:30 PM EDT Narrative 06/08/2025 4:43 PM EDT [place] [address] Ultrasound Report Signed Patient: Branden Tavera MR#: [id number] : 1980 Acct:[id number] Age/Sex: 44 / F ADM Date: 06/08/25 Loc: HO.US Attending Dr: Shea King DO Ordering Physician: Shea King DO Date of Service: 06/08/25 Procedure(s): US Extremity Nonvas Limited RT Accession Number(s): [id number] cc: Reba Hargrove MD; Shea King DO Reason for [...] Reymundo Woo MD 06/08/2025 04:40 PM EDT Dictated By: Reymundo Woo MD Signed By: <Electronically signed by Reymundo Woo MD in OV> 06/08/25 1640 DD/ 1530 TD/TT: 06/08/25 1537 Bulb Sorter: Procedure Note Donotuseinterpreter, Image - 06/08/[address] [address] Ultrasound Report Signed Patient: Branden Tavera#: [id number] : 1980Acct:[id number] Age/Sex: 44 / FADM Date: 06/08/25 Loc: HO.US Attending Dr: Shea King DO Ordering Physician: Shea King DO Date of Service: 06/08/25 Procedure(s): US Extremity Nonvas Limited RT Accession Number(s): [id number] cc: Reba Hargrove MD; Shea King DO Reason for [...] Reymundo Woo MD 06/08/2025 04:40 PM EDT Dictated By: Reymundo Woo MD Signed By: <Electronically signed by Reymundo Woo MD in OV> 06/08/25 1640 DD/ 1530 TD/TT: 06/08/25 1537 Bulb Sorter: us Shea King DO IMG US PROCEDURES Final Resu lt * MR Lumbar Spine w/o Contrast (05/07/2025 8:01 PM EDT) Anatomical Region Laterality Modality Spine, L-spine Magnetic Resonan ce 05/07/2025 8:01 PM EDT Narrative 05/07/2025 8:01 PM EDT [address] [address] Magnetic Resonance Report Signed Patient: Branden Tavera MR#: [id number] : 1980 Acct:[id number] Age/Sex: 44 / F ADM Date: 05/07/25 Loc: HO.MRI Attending Dr: Shea King DO Ordering Physician: Shea King DO Date of Service: 05/07/25 Procedure(s): MR lumbar spine wo con Accession Number(s): [id number] cc: Reba Hargrove MD; Shea King DO [...] in OV> 05/07/252000 DD/ 00 TD/TT: 05/07/252000 Bulb Sorter: Procedure Note Donotuseinterpreter, Image - 05/07/2025 [place] [address] Magnetic Resonance Report Signed Patient: Branden Tavera#: [id number] : 1980Acct:[id number] Age/Sex: 44 / FADM Date: 05/07/25 Loc: HO.MRI Attending Dr: Shea King DO Ordering Physician: Shea King DO Date of Service: 05/07/25 Procedure(s): MR lumbar spine wo con Accession Number(s): [id number] cc: Reba Hargrove MD; Shea King DO [...] in OV> 05/07/252000 DD/ 00 TD/TT: 05/07/252000 Bulb Sorter: Shea King DO IMG MRI PROCEDURES Final Res ult * (ABNORMAL) Vitamin D, 25-Hydroxy, Total, Immunoassay (03/27/2025 10:54 AM EDT) Vitamin D 25-OH Total 29.6(L) >30 ng/mL [facility] Comment: Health Based Reference Values*< 20 ng/mL Ggmyiqlok71-43 ng/mL Insufficient> 30 ng/mL Sufficient*Karen OLIVAS. N [...] R esult Performing Organization Address [facility]/ZIP Co de Phone Number [facility] [address] [place] [phone] * Lyme Disease Ab with Reflex [...] when erythemamigrans is apparent.THIS TEST WAS PERFORMED AT:[email or web address] [place] [phone] TAPIA MD Lyme Blot TNP [facility] 03/27/2025 10:5 4 AM EDT 03/27/2025 12:58 PM EDT Shea Christine DO LAB BLOOD ORDERABLES Final R esult Performing Organization Address [facility]/ZIP Co de Phone Number [facility] [address] [place] [phone] * Sed Rate by Modified Soila (03/27/2025 10:54 AM EDT) Erythrocyte Sedimentation Rate 2 0 - 20 MM/HR [facility] Comment:Patients with polycy themia and many hemoglobin abnormalitiesmay have depressed sed rates whereas patients with anemiamay have elevated sed rates. Blood Venous blood specimen / Unknown 03/27/2025 10:54 AM EDT 03/27/2025 12:55 PM EDT us Shea King DO LAB BLOOD ORDERABLES Final R esult [facility] [address] [place] [phone] * CBC (03/27/2025 10:54 AM EDT) [...] R esult Performing Organization Address [facility] de Phone Number [facility] [address] [place] [phone] * Rheumatoid Factor (03/27/2025 10:54 AM EDT) Pathologist [facility] Rheumatoid Factor <13.0 <15.0 IU/mL [facility] Blood Venous blood specimen / Unknown 03/27/2025 10:54 AM EDT 03/27/2025 12:55 PM EDT Shea King DO LAB BLOOD ORDERABLES Final R esult Performing Organization Address [facility] Phone Number [facility] [address] [place] [phone] * C-reactive Protein (03/27/2025 10:54 AM EDT) Pathologist [facility] C Reactive Protein 0.17 < or = 0.50 mg/dL [facility] Blood Venous blood specimen / Unknown 03/27/2025 10:54 AM EDT 03/27/2025 12:58 PM EDT Shea King LAB BLOOD ORDERABLES Final R esult Performing Organization Address [facility] de Phone Number [facility] [address] [place] [phone] * (ABNORMAL) REBA Screen,IFA, with Reflex to Titer and Pattern (03/27/2025 10:54 AM EDT) Pathologist [facility] Anti Nuclear Antibody Screen POSITIVE (A) NEGATIVE [facility] Comment:REBA IFA is a first l ine screen for detecting thepresence of up to approximately 150 autoantibodies invarious autoimmune diseases. A positive REBA IFA resultis suggestive of autoimmune disease and reflexes totiter and pattern. Further laboratory testing may beconsidered if clinically indicated.For additional information, please refer tohttp://education.Wondershake/faq/HJL787(This link is being provided for informational/educational purposes only.) REBA Titer 1:80(A) titer [facility] Comment:A low level REBA tite r may be present in pre-clinicalautoimmune diseases and normal individuals. Reference Range <1:40 Negative 1:40-1:80 Low Antibody Level >1:80 Elevated Antibody Level REBA Pattern Nuclear, Speckled (A) [facility] Comment:Speckled pattern is associated with mixed connectivetissue disease (MCTD), systemic lupus erythematosus(SLE), Sjogren's syndrome, dermatomyositis, andsystemic sclerosis/polymyositis overlap.AC-2,4,5,29: SpeckledInternational Consensus on REBA Patterns(https://doi.org/10.1515/fytq-9555-0595)THIS TEST WAS PERFORMED AT:[address] [place] [phone] TAPIA MD REBA TITER 2 (REF LAB) [facility] REBA Pattern 2 TNP [facility] REBA TITER 3 [facility] REBA PATTERN 3 TNP [facility] Blood Venous blood specimen / Unknown 03/27/2025 10:54 AM EDT 03/27/2025 12:58 PM EDT us Shea King DO LAB BLOOD ORDERABLES Final R esult [facility] [address] [place] [phone] * TSH (03/27/2025 10:54 AM EDT) Thyroid Stimulating Hormone 1.75 0.32 - 4.0 uIU/mL [facility] Comment:TSH 3rd Generation ( [facility]) Blood Venous blood specimen / Unknown 03/27/2025 10:54 AM EDT 03/27/2025 12:58 PM EDT Shea Christine DO LAB BLOOD ORDERABLES Final R esult Performing Organization Address [facility] Co de Phone Number [facility] [address] [place] [phone] * T4, Free (03/27/2025 10:54 AM EDT) Free T4 (Free Thyroxine) 0.94 0.71 - 1.85 ng/dL [facility] Blood Venous blood specimen / Unknown 03/27/2025 10:54 AM EDT 03/27/2025 12:58 PM EDT Shea Christine infibond LAB BLOOD ORDERABLES Final R esult Performing Organization Address [facility] de Phone Number [facility] [address] [place] [phone] * Hemoglobin A1c (03/27/2025 10:54 AM EDT) Hemoglobin A1c 5.2 <6.0 % [facility] Comment:Hemoglobin A1C Refer ence Range [...] asaverage glucose, using the formula of the C6V-AriachiVtheexy Glucose study (ADAG), Diabetes Care, Vol.31,#8,2007 Blood Venous blood specimen / Unknown 03/27/2025 10:54 AM EDT 03/27/2025 12:55 PM EDT Shea Christine DO LAB BLOOD ORDERABLES Final R esult Performing Organization Address City/[facility] Co de Phone Number [facility] [address] [place] [phone] * (ABNORMAL) Hepatic Function Panel (03/27/2025 10:54 AM EDT) Pathologist [facility] Bilirubin, Total 0.6 0.0 - 1.0 mg/dL [...] R esult [facility] [address] [place] [phone] * (ABNORMAL) Lipid Panel, Standard (03/27/2025 10:54 AM EDT) Pathologist [facility] Triglycerides 197(H) <150 mg/dL [facility] Comment:Desirable Triglyceri de: less than [...] 190 mg/dL HDL Cholesterol 56 >40 mg/dL [facility] Comment:Desirable HDL: great er than 40 mg/dL Note: This HDL assay may give artificially low results in patients with liver disease. Blood Venous blood specimen / Unknown 03/27/2025 10:54 AM EDT 03/27/2025 12:58 PM EDT us Shea King DO LAB BLOOD ORDERABLES Final R esult Performing Organization Address City/[facility]/ZIP Co de Phone Number [facility] [address] [place] [address] [phone] * (ABNORMAL) Basic Metabolic Panel (03/27/2025 [...] Kidney Disea se: Estimated GFR < 60 mL/min/1.58o0Dwhtkc Kidney Disease: Estimated GFR < 15 mL/min/1.73m2 Glucose 100 60 - 115 mg/dL [facility] Calcium 9.1 8.4 - 10.2 mg/dL [facility] Blood Venous blood specimen / Unknown 03/27/2025 10:54 AM EDT 03/27/2025 12:58 PM EDT Shea King DO LAB BLOOD ORDERABLES Final R esult [facility] [address] [place] [phone] from Last 3 Months Insurance [place] [facility] MEDICAID STAND ADULT Care Teams Feed Manager Relationship Specialty Start Date End Date Reba Hargrove MD [address] [place] [phone] PCP - General Internal Medicine 05/19/24
--- OUTSIDE RECORDS SUMMARY | 2025-06-08 17:17 | XMS_ITS | Encounter Summary ---
Author Organization [employer] Address [address] [facility] 7t [place] [address] Care Team Providers Care Bisque Kiln Placer Name Role Phone Elissa Hargrove MD Primary Care Provider + Reason for Visit * Reason Onset Date Comments Med Refill 12/25/2024 Encounter Details Date Type Department Care Team ([facility] st Contact Info) Description 12/25/2024 Refill [facility] [address] [place] [address] [phone] Name, MD Ernie [address] [place] [address] Moderate persistent asthma without complication Social History [...] complication documented in this encounter Care Teams Bisque Kiln Placer Relationship Specialty Start Date End Date Elissa Hargrove MD [address] [place] [phone] PCP - General Internal Medicine 05/19/24 documented as of this encounter
== END 2025-06-08 15:12 | disposition home or self-care (01) ==
LOC: HO.US 15:11
PROVIDERS: PCP Internal Medicine; Visit Provider Family Medicine
DX: R22.9 Localized swelling, mass and lump, unspecified (principal)
CPT/HCPCS: 76882

== ENCOUNTER → 2025-06-08 15:30 | Outpatient (BNV) | payer MEDICAID, SELFPAY | PROVIDERS: PCP Internal Medicine; Visit Provider Radiology Diagnostic Radiology | DX: R22.41 Localized swelling, mass and lump, right lower limb (principal) | CPT/HCPCS: 76882 ==